=== PATIENT | female | born 1950 | race Caucasian/White ===

== ENCOUNTER 2017-02-25 10:45 | Emergency (ER) | payer MEDICARE, BC ==
[~2017-02-25] VITALS: Ht 170.2 cm; Wt 58.0 kg
[~2017-02-25 10:45] MED LIST: Z.0.NO CURRENT MEDS
[2017-02-25 10:48] VITALS: BP 130/67; PULSE 81; RESP 20; TEMP 97.6; O2SAT 97
[2017-02-25] MEDS ORDERED: MULT-65 PO (11:08)
[2017-02-25 11:18] VITALS: BP 142/79; PULSE 70; RESP 20; O2SAT 99
[2017-02-25] MEDS ORDERED: SODIUM CHLOR 0.9% 1000 ML INJ 1,000 ML IV SCH (11:23)
[2017-02-25] MEDS ORDERED: ONDANSETRON HCL 4 MG/2 ML VIAL IVP ONE (11:30)
--- NOTE | 2017-02-25 11:41 | PD ---
HPI Chief Complaint: Abdominal Pain Time Seen by Provider: 11:37 Travel History International Travel<30 days: No Contact w/Intl Traveler<30days: No Traveled to known affect area: No History of Present Illness HPI 66-year-old female that presents to the ED for evaluation of lower abdominal pain that she's had for months. Per patient she has a history of adhesions on her pelvic area. Per patient she had a hysterectomy and ever since she's had issues with that side. Per patient for the most but she's been dealing with the pain on her own. Per patient the past couple days has been more severe and she can barely walk because of the pain so she decided to come here today. She states that her pain is severe 10 out of 10. She denies any urinary issues. She states that her bowel movements are "more flat" than usual. She cannot really tell me how the pain feels like other than it's painful. Per patient pain does not radiate and stays mainly on the lower abdomen. Denies any chest pain. She does state having shortness of breath secondary to chronic smoking. She states that she has not seen anybody for this as she doesn't like "doctors work. Per patient she doesn't take any medications. She denies any other medical issues. She has allergies to Benadryl, codeine, iodine. She has not seen anybody for the lower abdominal pain. She denies any vaginal discharge or bleeding. PFSH Past Medical History Cancer: No Diabetes: No Diminished Hearing: No Glaucoma: No Hepatitis: No Hiatal Hernia: Yes Hypertension: No Medical other: Yes (esophageal stricture acid reflux) Pneumonia: Yes Thyroid Disease: No Influenza Vaccination: No Menopausal: Yes Past Surgical History Abdominal Surgery: Yes (ADHESIONS) Appendectomy: Yes Hysterectomy: Yes Oral Surgery: Yes (TOOTH EXTRACTION) Other Surgery: Yes Social History Alcohol Use: Yes (weekly) Tobacco Use: Yes (1/2 ppd) Substance Use: No Allergies-Medications (Allergen,Severity, Reaction): Coded Allergies: Benadryl (Verified Allergy, Severe, shortness of breath, 02/25/17) Codeine (Verified Allergy, Severe, sob, 02/25/17) Iodine (Verified Allergy, Severe, HIVES, 02/25/17) Reported Meds & Prescriptions Reported Meds & Active Scripts Active Reported Multi-Vitamin Daily (Multiple Vitamin) 1 Tab Tab 1 Tab PO DAILY Review of Systems Except as stated in HPI: all other systems reviewed are Neg Physical Exam Narrative GENERAL: SKIN: Warm and dry. HEAD: Atraumatic. Normocephalic. EYES: Pupils equal and round. No scleral icterus. No injection or drainage. ENT: No nasal bleeding or discharge. Mucous membranes pink and moist. Tongue is midline. No uvula deviation. NECK: Trachea midline. No JVD. CARDIOVASCULAR: Regular rate and rhythm. No murmurs, S3, S4. RESPIRATORY: No accessory muscle use. Clear to auscultation. Breath sounds equal bilaterally. GASTROINTESTINAL: Abdomen soft, tender to palpation in the lower abdomen, nondistended. Hepatic and splenic margins not palpable. MUSCULOSKELETAL: Extremities without clubbing, cyanosis, or edema. No obvious deformities. Full range of motion of the upper and lower extremities bilaterally. Pupils pulses bilaterally. NEUROLOGICAL: Awake and alert. No obvious cranial nerve deficits. Motor grossly within normal limits. Five out of 5 muscle strength in the arms and legs. Normal speech. PSYCHIATRIC: Appropriate mood and affect; insight and judgment normal. Data Data Last Documented VS Vital Signs Date Time Temp Pulse Resp B/P Pulse Ox O2 Delivery O2 Flow Rate FiO2 02/25/17 14:25 98.1 59 18 146/61 98 Room Air Orders Complete Blood Count With Diff (02/25/17 11:23) Comprehensive Metabolic Panel (02/25/17 11:23) Lipase (02/25/17 11:23) Lactic Acid (02/25/17 11:23) Prothrombin Time / Inr (Pt) (02/25/17 11:23) Act Partial Throm Time (Ptt) (02/25/17 11:23) Urinalysis - C+S If Indicated (02/25/17 11:23) Iv Access Insert/Monitor (02/25/17 11:23) Ondansetron Inj (Zofran Inj) (02/25/17 11:30) Sodium Chlor 0.9% 1000 Ml Inj (Ns 1000 M (02/25/17 11:23) Electrocardiogram (02/25/17 11:23) Ct Abd/Pel W/O Iv Contrast (02/25/17 ) Oral Contrast - Adult (02/25/17 11:33) Diatrizoate Liq ( Gastroview Liq) (02/25/17 12:33) Diatrizoate Liq (Md [place]) (02/25/17 13:21) Labs Laboratory Tests Test 02/25/17 02/25/17 02/25/17 11:25 11:30 11:41 Urine Color LIGHT-YELLOW Urine Turbidity CLEAR Urine pH 7.0 Urine Specific [place] 1.010 Urine Protein NEG mg/dL Urine Glucose (UA) NEG mg/dL Urine Ketones NEG mg/dL Urine Occult Blood SMALL Urine Nitrite NEG Urine Bilirubin NEG Urine Urobilinogen LESS THAN 2.0 MG/DL Urine Leukocyte Esterase NEG Urine RBC 7 /hpf Urine WBC LESS THAN 1 /hpf Urine Mucus FEW /lpf Microscopic Urinalysis Comment CULT NOT INDICATED White Blood Count 7.4 TH/MM3 Red Blood Count 4.52 MIL/MM3 Hemoglobin 15.0 GM/DL Hematocrit 42.6 % Mean Corpuscular Volume 94.2 FL Mean Corpuscular Hemoglobin 33.2 PG Mean Corpuscular Hemoglobin 35.2 % Concent Red Cell Distribution Width 12.9 % Platelet Count 248 TH/MM3 Mean Platelet Volume 8.0 FL Neutrophils (%) (Auto) 66.3 % Lymphocytes (%) (Auto) 26.8 % Monocytes (%) (Auto) 6.1 % Eosinophils (%) (Auto) 0.4 % Basophils (%) (Auto) 0.4 % Neutrophils # (Auto) 4.9 TH/MM3 Lymphocytes # (Auto) 2.0 TH/MM3 Monocytes # (Auto) 0.5 TH/MM3 Eosinophils # (Auto) 0.0 TH/MM3 Basophils # (Auto) 0.0 TH/MM3 CBC Comment DIFF FINAL Differential Comment Prothrombin Time 10.4 SEC Prothromb Time International 0.9 RATIO Ratio Activated Partial 28.0 SEC Thromboplast Time Sodium Level 140 MEQ/L Potassium Level 3.7 MEQ/L Chloride Level 104 MEQ/L Carbon Dioxide Level 27.0 MEQ/L Anion Gap 9 MEQ/L Blood Urea Nitrogen 8 MG/DL Creatinine 0.78 MG/DL Estimat Glomerular Filtration 74 ML/MIN Rate Random Glucose 98 MG/DL Calcium Level 9.4 MG/DL Total Bilirubin 0.5 MG/DL Aspartate Amino Transf 20 U/L (AST/SGOT) Alanine Aminotransferase 26 U/L (ALT/SGPT) Alkaline Phosphatase 82 U/L Total Protein 7.8 GM/DL Albumin 4.5 GM/DL Lipase 110 U/L Lactic Acid Level 1.1 mmol/L MDM Medical Decision Making Medical Screen Exam Complete: Yes Emergency Medical Condition: Yes Medical Record Reviewed: Yes Interpretation(s) CBC & BMP Diagram 02/25/17 11:30 LFTs WNL lipase WNL UA positive for blood. CT of abdomen and pelvis negative other than for possible cyst to the left kidney Differential Diagnosis Acute on chronic abdominal pain versus pelvic pain versus diverticulitis versus mass versus chronic pain versus UTI versus cystitis Narrative Course 66-year-old female that presents to the ED for evaluation of lower abdominal pain. Patient was properly examined and was found to have signs and symptoms of unclear etiology. This appears to be acute on chronic pain. I reviewed her medical records and she had similar symptoms in 2011 when she was seen by 3 different providers during that time. The providers at the time found her to be somewhat of a poor historian as well. Patient was offered pain medications but she declined. I offered labs and imaging and she agreed with this. Labs and imaging showed no sign of acute disease. CT was negative. The only thing that came up was some possible blood in the urine which she had last time. At this time I recommend close follow with outpatient PCP or urologist. Patient was given prescription for tramadol and diclofenac sodium to use for pain. Warm compresses. Follow urologist. See ED worsening symptoms. Diagnosis Primary Impression: Abdominal pain Qualified Code: R10.30 - Lower abdominal pain Additional Impression: Hematuria Referrals: Arnol Arellano DO Patient Instructions: General Instructions Additional Instructions: Take medications as prescribed. Follow-up with PCP and urologist for further evaluation (your urine did showed some blood and this requires evaluation by urologist Outpatient to better asses why you are having this pain). See ED for any worsening symptoms. Do not drink or drive while taking pain medication. Apply ice or heat as needed for pain Med/Other Pt SpecificInfo: Prescription(s) given Scripts Diclofenac Sodium DR 75 Mg Tabdr75 Mg PO BID PRN (PAIN SCALE 1 TO 10) #20 TAB Ref 0 Prov:Demond Weiner MD 02/25/17 Tramadol 50 Mg Tab50 Mg PO Q6H PRN (PAIN) #15 TAB Ref 0 Prov:Demond Weiner MD 02/25/17 Disposition: 01 DISCHARGE HOME Condition: Stable Dc Louis February 25, 2017 11:41
[2017-02-25 11:56] LABS: AUTOMATED NEUTROPHIL # 4.9 TH/MM3 (1.8-7.7); BASOPHIL % 0.4 % (0.0-2.0); EOSINOPHIL % 0.4 % (0.0-4.0); HEMATOCRIT 42.6 % (35.0-46.0); HEMO FLAGS DIFF FINAL; LYMPH % 26.8 % (9.0-44.0); MEAN CELL VOLUME 94.2 FL (80.0-100.0); MEAN CORPUSCULAR HEMOGLOBIN 33.2 PG (27.0-34.0); MEAN CORPUSCULAR HGB CONC 35.2 % (32.0-36.0); MONO % 6.1 % (0.0-8.0); NEUT % 66.3 % (16.0-70.0); PLATELET COUNT 248 TH/MM3 (150-450); RED BLOOD COUNT 4.52 MIL/MM3 (4.00-5.30); RED CELL DISTRIBUTION WIDTH 12.9 % (11.6-17.2); WHITE BLOOD COUNT 7.4 TH/MM3 (4.0-11.0)
[2017-02-25 12:01] LABS: INTERNATIONAL NORMALIZED RATIO 0.9 RATIO; PROTHROMBIN TIME - PATIENT 10.4 SEC (9.8-11.6)
[2017-02-25 12:01] LABS: BLOOD, URINE SMALL (NEG); COMMENT (UR) CULT NOT INDICATED; CULTURE IF INDICATED CULT NOT INDICATED; GLUCOSE,URINE NEG (NEG); KETONE, URINE NEG (NEG); MUCUS URINE FEW /lpf (OCC); NITRITE,URINE NEG (NEG); URINE COLOR LIGHT-YELLOW (YELLW/STRAW)
[2017-02-25 12:21] LABS: ANION GAP 9 MEQ/L (5-15); AST (GOT) 20 U/L (15-37); BLOOD UREA NITROGEN 8 MG/DL (7-18); CHLORIDE 104 MEQ/L (98-107); GLOMERULAR FILTRATION RATE 74 ML/MIN (>89); POTASSIUM 3.7 MEQ/L (3.5-5.1); SODIUM (NA) 140 MEQ/L (136-145)
[2017-02-25 12:25] LABS: ALKALINE PHOSPHATASE 82 U/L (45-117); ALT (GPT) 26 U/L (10-53); TOTAL BILIRUBIN ADULT 0.5 MG/DL (0.2-1.0)
[2017-02-25] MEDS ORDERED: DIATRIZOATE MEGLUM/DIATRIZOATE SOD 9 ML CUP ONE ×2 (12:33→13:21)
[2017-02-25] MEDS ORDERED: IOHEXOL 350 MG/ML 10 ML VIAL (for RAD DIAG) IV ONE (14:22)
[2017-02-25 14:25] VITALS: BP 146/61; PULSE 59; RESP 18; TEMP 98.1; O2SAT 98
--- NOTE | 2017-02-25 14:49 | RADRPT ---
EXAM DATE/TIME: 02/25/2017 14:15 [facility] COMPARISON: No previous studies available for comparison. INDICATIONS : Lower abdominal pain, dizziness and weakness for the last few days. ORAL CONTRAST: Prescribed oral contrast ingested. RADIATION DOSE: 9.96 CTDIvol (mGy) MEDICAL HISTORY : C-difficle. SURGICAL HISTORY : Appendectomy. Hysterectomy. ENCOUNTER: Initial ACUITY: 3 days PAIN SCALE: 3/10 LOCATION: Bilateral lower quadrant TECHNIQUE: Volumetric scanning of the abdomen and pelvis was performed. Using automated exposure control and ad justment of the mA and/or kV according to patient size, radiation dose was kept as low as reasonably achievable to obtain optimal diagnostic quality images. FINDINGS: LOWER LUNGS: The visualized lower lungs are clear. LIVER: Homogeneous density without lesion. There is no dilation of the biliary tree. No calcified gallston es. SPLEEN: Normal size without lesion. PANCREAS: Within normal limits. KIDNEYS: There is a small hypodensity in the anterior midpole region of the right kidney which is likely a cys t. There is no evidence of stone or hydronephrosis. ADRENAL GLANDS: Within normal limits. VASCULAR: There is no aortic aneurysm. BOWEL/MESENTERY: Distal colonic diverticula. No abnormal dilatation, wall thickening or focal inflammatory changes myron ntified. ABDOMINAL WALL: Within normal limits. RETROPERITONEUM: There is no lymphadenopathy. BLADDER: No wall thickening or mass. REPRODUCTIVE: Uterus surgically absent. No evidence of pelvic mass or free fluid. INGUINAL: There is no lymphadenopathy or hernia. MUSCULOSKELETAL: Within normal limits for patient age. CONCLUSION: No acute CT findings the abdomen or pelvis. Troy Morocho MD on February 25, 2017 at 14:43 Board Certified Radiologist. This report was verified electronically.
[2017-02-25] MEDS ORDERED: DICL75TA PO (14:53)
[2017-02-25] MEDS ORDERED: TRAM50TA PO (14:53)
[2017-02-25 15:28] VITALS: BP 136/74; TEMP 98.6
--- NOTE | 2017-02-26 18:26 | EKG ---
Date Performed: 02/25/2017 Time Performed: 14:37:26 PTAGE: 66 years EKG: SINUS BRADYCARDIA BORDERLINE ECG Compared to prior tracing no significant change PREVIOUS TRACING on 07/24/2008 DOCTOR: Tristin Reid Interpretating Date/Time 02/26/2017 18:24:21
== END 2017-02-25 15:33 | disposition home or self-care (01) ==
LOC: NEPE 10:45
DX: R10.30 Lower abdominal pain, unspecified (principal); R31.9 Hematuria, unspecified; R06.02 Shortness of breath; F17.210 Nicotine dependence, cigarettes, uncomplicated
CPT/HCPCS: 74176; 80053; 81001; 83605; 83690; 85025; 85610; 85730; 93005; 96360; 99284; J7030; Q9963; Q9967

== ENCOUNTER 2017-04-16 11:25 | Emergency (ER) | payer MEDICARE, BC ==
[~2017-04-16] VITALS: Ht 170.2 cm; Wt 54.5 kg
[~2017-04-16 11:25] MED LIST changes: +DICL75TA PO; +MULT-65 PO; +TRAM50TA PO; -Z.0.NO CURRENT MEDS
[2017-04-16 11:27] VITALS: BP 146/69; PULSE 90; RESP 22; TEMP 98.5; O2SAT 97
[2017-04-16] MEDS ORDERED: SODIUM CHLOR 0.9% 1000 ML INJ 1,000 ML IV SCH (11:52)
--- NOTE | 2017-04-16 11:59 | PD ---
HPI Chief Complaint: Abdominal Pain Time Seen by Provider: 11:47 Travel History International Travel<30 days: No Contact w/Intl Traveler<30days: No Traveled to known affect area: No History of Present Illness HPI PATIENT HAS CHRONIC ABD PAIN, SHE IS HERE FOR SAME...NO N/V/D BUT CONTINUES TO C /O ABDOMINAL PAIN PFSH Past Medical History Cancer: No Diabetes: No Diminished Hearing: No Glaucoma: No Hepatitis: No Hiatal Hernia: Yes Hypertension: No Medical other: Yes (esophageal stricture acid reflux) Pneumonia: Yes Thyroid Disease: No Tetanus Vaccination: Unknown Influenza Vaccination: No Menopausal: Yes Past Surgical History Abdominal Surgery: Yes (ADHESIONS) Appendectomy: Yes Hysterectomy: Yes Oral Surgery: Yes (TOOTH EXTRACTION) Other Surgery: Yes Social History Alcohol Use: Yes (weekly) Tobacco Use: Yes (1/2 ppd) Substance Use: No Allergies-Medications (Allergen,Severity, Reaction): Coded Allergies: Codeine (Verified Allergy, Severe, sob, 04/16/17) Iodine (Verified Allergy, Severe, HIVES, 04/16/17) Reported Meds & Prescriptions Reported Meds & Active Scripts Active Reported Multi-Vitamin Daily (Multiple Vitamin) 1 Tab Tab 1 Tab PO DAILY Review of Systems Except as stated in HPI: all other systems reviewed are Neg Gastrointestinal: Positive: Abdominal Pain Physical Exam Narrative GENERAL: SKIN: Warm and dry. HEAD: Atraumatic. Normocephalic. EYES: Pupils equal and round. No scleral icterus. No injection or drainage. ENT: No nasal bleeding or discharge. Mucous membranes pink and moist. NECK: Trachea midline. No JVD. CARDIOVASCULAR: Regular rate and rhythm. RESPIRATORY: No accessory muscle use. Clear to auscultation. Breath sounds equal bilaterally. GASTROINTESTINAL: Abdomen soft, NONDISTENDED, WHILE PATIENT IS DISTRACTED NO REBOUND/GUARDING/RIGIDITY BUT SOON PATIENT IS AWARE, I CANNOT EVEN GRAZE HER SKIN WITHOUT HER SCREAMING AND YELLING AT THE TOP OF HER LUNGS C/O ABD PAIN... MUSCULOSKELETAL: Extremities without clubbing, cyanosis, or edema. No obvious deformities. NEUROLOGICAL: Awake and alert. No obvious cranial nerve deficits. Motor grossly within normal limits. Five out of 5 muscle strength in the arms and legs. Normal speech. PSYCHIATRIC: Appropriate mood and affect; insight and judgment normal. Data Data Last Documented VS Vital Signs Date Time Temp Pulse Resp B/P Pulse Ox O2 Delivery O2 Flow Rate FiO2 04/16/17 11:44 22 04/16/17 11:27 98.5 90 146/69 97 Room Air Orders Complete Blood Count With Diff (04/16/17 11:52) Comprehensive Metabolic Panel (04/16/17 11:52) Lipase (04/16/17 11:52) Ct Abd/Pel W/O Iv Contrast (04/16/17 11:52) Iv Access Insert/Monitor (04/16/17 11:52) NPO (04/16/17 11:52) Ondansetron Inj (Zofran Inj) (04/16/17 12:00) Sodium Chlor 0.9% 1000 Ml Inj (Ns 1000 M (04/16/17 11:52) Sodium Chloride 0.9% Flush (Ns Flush) (04/16/17 12:00) Dicyclomine Inj (Bentyl Inj) (04/16/17 12:00) Labs Laboratory Tests Test 04/16/17 11:55 White Blood Count 10.4 TH/MM3 Red Blood Count 4.66 MIL/MM3 Hemoglobin 15.0 GM/DL Hematocrit 44.2 % Mean Corpuscular Volume 94.9 FL Mean Corpuscular Hemoglobin 32.1 PG Mean Corpuscular Hemoglobin 33.8 % Concent Red Cell Distribution Width 12.9 % Platelet Count 232 TH/MM3 Mean Platelet Volume 8.5 FL Neutrophils (%) (Auto) 72.0 % Lymphocytes (%) (Auto) 22.6 % Monocytes (%) (Auto) 4.9 % Eosinophils (%) (Auto) 0.3 % Basophils (%) (Auto) 0.2 % Neutrophils # (Auto) 7.5 TH/MM3 Lymphocytes # (Auto) 2.4 TH/MM3 Monocytes # (Auto) 0.5 TH/MM3 Eosinophils # (Auto) 0.0 TH/MM3 Basophils # (Auto) 0.0 TH/MM3 CBC Comment DIFF FINAL Differential Comment MDM Medical Decision Making Medical Screen Exam Complete: Yes Emergency Medical Condition: Yes Medical Record Reviewed: Yes Differential Diagnosis SBO V PANCREATITIS V ELECTROLYTE ABNL Narrative Course PATIENT FROM THE GET GO WAS YELLING AND SCREAMING AT STAFF THAT SHE NEEDS XANAX , AND THAT SHE IS IN PAIN (ABDOMINAL), YET WHEN ADVISED THAT I WOULD BE ORDERING CT ABD AND LABS, SHE DECLINED UNLESS SHE WAS GIVEN PAIN MEDICATION....BENTYL, ZOFRAN AND IVF WERE OFFERED, SHE REFUSED THOSE WELL HER CT....PT GIVEN RISK OF AMA AND INTERFERING IN HER MEDICAL EVALUATION WHERE NO DIAGNOSTICS ARE DONE BUT ONLY PAIN MEDICATION IS GIVEN. Diagnosis Primary Impression: AMA Additional Impression: CHRONIC ABDOMINAL PAIN Patient Instructions: Chronic Abdominal Pain (ED), General Instructions Additional Instructions: SEE GI DOCTOR JOSEF AND KEEP YOUR APPOINTMENT WITH DR AVALOS Disposition: 07 AGAINST MEDICAL ADVICE Condition: Stable Delon Mcneill MD Apr 16, 2017 11:59
[2017-04-16] MEDS ORDERED: ONDANSETRON HCL 4 MG/2 ML VIAL IVP ONE (12:00)
[2017-04-16] MEDS ORDERED: SODIUM CHLORIDE 0.9% FLUSH 10 ML FLUSH IV FLUSH PRN (12:00)
[2017-04-16] MEDS ORDERED: DICYCLOMINE HCL 20 MG/2 ML VIAL IM ONE (12:00)
[2017-04-16 12:17] LABS: AUTOMATED NEUTROPHIL # 7.5 TH/MM3 (1.8-7.7); BASOPHIL % 0.2 % (0.0-2.0); EOSINOPHIL % 0.3 % (0.0-4.0); HEMATOCRIT 44.2 % (35.0-46.0); HEMO FLAGS DIFF FINAL; LYMPH % 22.6 % (9.0-44.0); LYMPHOCYTE # 2.4 TH/MM3 (1.0-4.8); MEAN CELL VOLUME 94.9 FL (80.0-100.0); MEAN CORPUSCULAR HEMOGLOBIN 32.1 PG (27.0-34.0); MEAN CORPUSCULAR HGB CONC 33.8 % (32.0-36.0); MONO % 4.9 % (0.0-8.0); PLATELET COUNT 232 TH/MM3 (150-450); RED BLOOD COUNT 4.66 MIL/MM3 (4.00-5.30); RED CELL DISTRIBUTION WIDTH 12.9 % (11.6-17.2); WHITE BLOOD COUNT 10.4 TH/MM3 (4.0-11.0)
[2017-04-16 12:37] LABS: ALT (GPT) 26 U/L (10-53); ANION GAP 8 MEQ/L (5-15); AST (GOT) 13 U/L (15-37); BICARBONATE 25.9 MEQ/L (21.0-32.0); BLOOD UREA NITROGEN 10 MG/DL (7-18); CHLORIDE 106 MEQ/L (98-107); GLOMERULAR FILTRATION RATE 78 ML/MIN (>89); POTASSIUM 3.8 MEQ/L (3.5-5.1); SODIUM (NA) 140 MEQ/L (136-145)
[2017-04-16 12:39] LABS: ALKALINE PHOSPHATASE 75 U/L (45-117); TOTAL BILIRUBIN ADULT 0.5 MG/DL (0.2-1.0)
== END 2017-04-16 13:30 | disposition left against medical advice (07) ==
LOC: NEPC 11:25
DX: R10.9 Unspecified abdominal pain (principal); F17.210 Nicotine dependence, cigarettes, uncomplicated; G89.29 Other chronic pain; Z53.21 Procedure and treatment not carried out due to patient leaving prior to being seen by health care provider
CPT/HCPCS: 80053; 83690; 85025; 96360; 99284; J7030

== ENCOUNTER 2017-04-25 11:57 | Emergency (ER) | payer MEDICARE, BC ==
[~2017-04-25] VITALS: Ht 170.2 cm; Wt 58.0 kg
[~2017-04-25 11:57] MED LIST changes: -DICL75TA PO; -TRAM50TA PO
[2017-04-25 11:59] VITALS: BP 154/85; PULSE 92; RESP 28; TEMP 98.5; O2SAT 94
[2017-04-25] MEDS ORDERED: SODIUM CHLORIDE 0.9% FLUSH 10 ML FLUSH IV FLUSH PRN (13:30)
--- NOTE | 2017-04-25 13:31 | PD ---
HPI Chief Complaint: Abdominal Pain Time Seen by Provider: 12:46 Travel History International Travel<30 days: No Contact w/Intl Traveler<30days: No Traveled to known affect area: No History of Present Illness HPI This is a 67-year-old female who presents to the emergency department with a history of chronic abdominal pain who reports right sided lower abdominal pain that's been present for the past 2 months but much worse over the past 2 days to the point where she says she can't function. She says she came in to the grocery store because she has some much pain. She says the pain is worse in the morning and it causes her to double over and she has trouble getting around the house. She says she feels nauseous but denies any vomiting and denies any diarrhea or constipation. She denies any fevers or chills. She's had a hysterectomy and an appendectomy in the past and she had a surgery for lysis of adhesions. She thinks that the adhesions or what is causing her pain. She doesn't have a primary care doctor and doesn't have a core extruder. She says she's called all over town but nobody is taking new patients. PFSH Past Medical History Cancer: No Diabetes: No Diminished Hearing: No Glaucoma: No Hepatitis: No Hiatal Hernia: Yes Hypertension: No Medical other: Yes (esophageal stricture acid reflux) Pneumonia: Yes Thyroid Disease: No Menopausal: Yes Past Surgical History Abdominal Surgery: Yes (ADHESIONS) Appendectomy: Yes Hysterectomy: Yes Oral Surgery: Yes (TOOTH EXTRACTION) Other Surgery: Yes Social History Alcohol Use: Yes (weekly) Tobacco Use: Yes (1/2 ppd) Substance Use: No Allergies-Medications (Allergen,Severity, Reaction): Coded Allergies: Codeine (Verified Allergy, Severe, sob, 04/25/17) Iodine (Verified Allergy, Severe, HIVES, 04/25/17) Reported Meds & Prescriptions Reported Meds & Active Scripts Active Reported Multi-Vitamin Daily (Multiple Vitamin) 1 Tab Tab 1 Tab PO DAILY Review of Systems Except as stated in HPI: all other systems reviewed are Neg Physical Exam Narrative GENERAL:Well appearing, no acute distress SKIN: Focused skin assessment warm and dry. HEAD: Atraumatic. Normocephalic. EYES: Pupils equal and round. No injection or drainage. ENT: Moist mucous membranes NECK: Trachea midline. CARDIOVASCULAR: Regular rate and rhythm. No murmur appreciated. RESPIRATORY: Clear to auscultation. Breath sounds equal bilaterally. GASTROINTESTINAL: Abdomen soft, tender to palpation in the right lower quadrant with some guarding MUSCULOSKELETAL: No obvious deformities. NEUROLOGICAL: Awake and alert. No obvious cranial nerve deficits. Moving all extremities. PSYCHIATRIC : very anxious, somewhat tangential Data Data Last Documented VS Vital Signs Date Time Temp Pulse Resp B/P Pulse Ox O2 Delivery O2 Flow Rate FiO2 04/25/17 14:12 16 97 Room Air 04/25/17 11:59 98.5 92 154/85 Orders Complete Blood Count With Diff (04/25/17 13:17) Comprehensive Metabolic Panel (04/25/17 13:17) Lipase (04/25/17 13:17) Lactic Acid (04/25/17 13:17) Urinalysis - C+S If Indicated (04/25/17 13:17) Iv Access Insert/Monitor (04/25/17 13:17) Ecg Monitoring (04/25/17 13:17) Oximetry (04/25/17 13:17) Sodium Chloride 0.9% Flush (Ns Flush) (04/25/17 13:30) Ct Abd/Pel W/O Iv Contrast (04/25/17 ) Labs Laboratory Tests Test 04/25/17 04/25/17 04/25/17 13:38 14:10 14:27 White Blood Count 8.0 TH/MM3 Red Blood Count 4.64 MIL/MM3 Hemoglobin 15.2 GM/DL Hematocrit 44.0 % Mean Corpuscular Volume 94.8 FL Mean Corpuscular Hemoglobin 32.7 PG Mean Corpuscular Hemoglobin 34.5 % Concent Red Cell Distribution Width 12.7 % Platelet Count 235 TH/MM3 Mean Platelet Volume 8.5 FL Neutrophils (%) (Auto) 70.1 % Lymphocytes (%) (Auto) 23.8 % Monocytes (%) (Auto) 5.7 % Eosinophils (%) (Auto) 0.2 % Basophils (%) (Auto) 0.2 % Neutrophils # (Auto) 5.6 TH/MM3 Lymphocytes # (Auto) 1.9 TH/MM3 Monocytes # (Auto) 0.5 TH/MM3 Eosinophils # (Auto) 0.0 TH/MM3 Basophils # (Auto) 0.0 TH/MM3 CBC Comment DIFF FINAL Differential Comment Sodium Level 138 MEQ/L Potassium Level 4.4 MEQ/L Chloride Level 106 MEQ/L Carbon Dioxide Level 26.1 MEQ/L Anion Gap 6 MEQ/L Blood Urea Nitrogen 8 MG/DL Creatinine 0.82 MG/DL Estimat Glomerular Filtration 69 ML/MIN Rate Random Glucose 100 MG/DL Calcium Level 9.9 MG/DL Total Bilirubin 0.7 MG/DL Aspartate Amino Transf 21 U/L (AST/SGOT) Alanine Aminotransferase 22 U/L (ALT/SGPT) Alkaline Phosphatase 71 U/L Total Protein 7.5 GM/DL Albumin 4.4 GM/DL Lipase 118 U/L Lactic Acid Level 1.4 mmol/L Urine Color LIGHT-YELLOW Urine Turbidity CLEAR Urine pH 7.5 Urine Specific [place] 1.005 Urine Protein NEG mg/dL Urine Glucose (UA) NEG mg/dL Urine Ketones NEG mg/dL Urine Occult Blood SMALL Urine Nitrite NEG Urine Bilirubin NEG Urine Urobilinogen LESS THAN 2.0 MG/DL Urine Leukocyte Esterase NEG Urine RBC 4 /hpf Urine WBC LESS THAN 1 /hpf Microscopic Urinalysis Comment CULT NOT INDICATED MDM Medical Decision Making Medical Screen Exam Complete: Yes Emergency Medical Condition: Yes Interpretation(s) Afebrile, mild tachycardia, tachypnea, hypertension No leukocytosis Electrolytes are reassuring Lactic acid is normal Lipase is normal Urinalysis is negative for infection Last 24 hours Impressions Abdomen/Pelvis CT 04/25/17 0000 Signed Impressions: Service Date/Time: Thursday, April 25, 2017 13:38 - CONCLUSION: 1. No acute findings within the abdomen or pelvis. Postoperative hysterectomy and appendectomy. No significant change from February 25. Baldomero Hendricks MD Differential Diagnosis Colitis, abscess, ovarian cyst, ovarian torsion Narrative Course This is a 67-year-old female who presents to the emergency department with right lower abdominal discomfort. She is guarding on exam. She also is very hysterical and seems to have a large component of anxiety to her presentation and perhaps some somatization disorder as she handed me a list of the symptoms that she was having just yesterday and they were written down on a piece of paper. Labs are obtained which were reassuring. His CT was obtained which was unremarkable. I strongly advised to the patient that she follow-up with a primary care physician and core extruder for further evaluation. Patient discharged home. Diagnosis Primary Impression: Abdominal pain Qualified Code: R10.9 - Abdominal pain, unspecified location Referrals: [facility] Patient Instructions: General Instructions Additional Instructions: If you develop severe or worsening abdominal pain, fever>100.4, persistent vomiting or inability to eat or drink return to the emergency department immediately. Follow up with your primary care physician in 1-2 days for a check-up. Med/Other Pt SpecificInfo: Prescription(s) given Scripts Dicyclomine (Bentyl)10 Mg Cap10 Mg PO TID PRN (Bowel Management) #15 CAP Ref 0 Prov:Graciela Carver MD 04/25/17 Disposition: 01 DISCHARGE HOME Condition: Stable Graciela Carver MD Apr 25, 2017 13:31
[2017-04-25 13:54] LABS: AUTOMATED NEUTROPHIL # 5.6 TH/MM3 (1.8-7.7); BASOPHIL % 0.2 % (0.0-2.0); EOSINOPHIL % 0.2 % (0.0-4.0); HEMO FLAGS DIFF FINAL; LYMPH % 23.8 % (9.0-44.0); LYMPHOCYTE # 1.9 TH/MM3 (1.0-4.8); MEAN CELL VOLUME 94.8 FL (80.0-100.0); MEAN CORPUSCULAR HEMOGLOBIN 32.7 PG (27.0-34.0); MEAN CORPUSCULAR HGB CONC 34.5 % (32.0-36.0); MONO % 5.7 % (0.0-8.0); NEUT % 70.1 % (16.0-70.0); PLATELET COUNT 235 TH/MM3 (150-450); RED BLOOD COUNT 4.64 MIL/MM3 (4.00-5.30); RED CELL DISTRIBUTION WIDTH 12.7 % (11.6-17.2)
[2017-04-25 14:00] VITALS: BP 133/72; PULSE 68; RESP 16; O2SAT 98
--- NOTE | 2017-04-25 14:05 | RADRPT ---
EXAM DATE/TIME: 04/25/2017 13:38 [facility] COMPARISON: CT ABDOMEN & PELVIS W/O CONTRAST, February 25, 2017, 14:15. INDICATIONS : Right lower abdomen pain for one month. ORAL CONTRAST: No oral contrast ingested. RADIATION DOSE: 4.59 CTDIvol (mGy) MEDICAL HISTORY : None SURGICAL HISTORY : Appendectomy. Hysterectomy. ENCOUNTER: Initial ACUITY: 1 month PAIN SCALE: 7/10 LOCATION: Right lower quadrant TECHNIQUE: Volumetric scanning of the abdomen and pelvis was performed. Using automated exposure control and ad justment of the mA and/or kV according to patient size, radiation dose was kept as low as reasonably achievable to obtain optimal diagnostic quality images. DICOM format image data is available electro nically for review and comparison. FINDINGS: Lung bases are clear. No acute findings in the liver, spleen, adrenals, kidneys or pancreas. No calci fied gallstones or biliary ductal dilatation. Postoperative hysterectomy and appendectomy. No pelvic masses or free fluid. No acute bony abnormalit ies. CONCLUSION: 1. No acute findings within the abdomen or pelvis. Postoperative hysterectomy and appendectomy. No si gnificant change from February 25. Baldomero Hendricks MD on April 25, 2017 at 13:59 Board Certified Radiologist. This report was verified electronically.
[2017-04-25 14:07] LABS: ALT (GPT) 22 U/L (10-53)
[2017-04-25 14:10] LABS: ALKALINE PHOSPHATASE 71 U/L (45-117); TOTAL BILIRUBIN ADULT 0.7 MG/DL (0.2-1.0)
[2017-04-25 14:12] VITALS: RESP 16; O2SAT 97
[2017-04-25 14:16] LABS: ANION GAP 6 MEQ/L (5-15); AST (GOT) 21 U/L (15-37); BICARBONATE 26.1 MEQ/L (21.0-32.0); BLOOD UREA NITROGEN 8 MG/DL (7-18); CHLORIDE 106 MEQ/L (98-107); GLOMERULAR FILTRATION RATE 69 ML/MIN (>89); SODIUM (NA) 138 MEQ/L (136-145)
[2017-04-25 14:20] LABS: POTASSIUM 4.4 MEQ/L (3.5-5.1)
[2017-04-25 15:01] LABS: BLOOD, URINE SMALL (NEG); GLUCOSE,URINE NEG (NEG); KETONE, URINE NEG (NEG); NITRITE,URINE NEG (NEG); PH, URINE 7.5 (5.0-8.5); URINE COLOR LIGHT-YELLOW (YELLW/STRAW)
[2017-04-25 15:02] LABS: COMMENT (UR) CULT NOT INDICATED; CULTURE IF INDICATED CULT NOT INDICATED
[2017-04-25] MEDS ORDERED: DICY10 PO (15:08)
== END 2017-04-25 15:58 | disposition home or self-care (01) ==
LOC: NEPE 11:57
DX: R10.9 Unspecified abdominal pain (principal); R10.31 Right lower quadrant pain; R11.0 Nausea; F17.200 Nicotine dependence, unspecified, uncomplicated; Z87.19 Personal history of other diseases of the digestive system; Z87.01 Personal history of pneumonia (recurrent)
CPT/HCPCS: 74176; 80053; 81001; 83605; 83690; 85025

== ENCOUNTER 2018-11-02 08:51 | Observation (INO) ==
--- NOTE | 2018-11-02 10:37 | ED ---
HPI General Chief complaint: Abdominal Pain Stated complaint: Dizziness Time Seen by Provider: 11/02/18 10:06 History of Present Illness HPI narrative: The patient was seen and examined in the presence of the nurse. At no point in time was in the room without the nurse present. This patient has a lot of complaints. Her chief complaint seems to be lightheadedness. This been going on for 2 days. It is worse when she leans forward her tilts her head back or changes position. She drove herself here. However she says she cannot walk at all. She walked to the bathroom but then called for help and said she could not walk back. She exhibits some bizarre behavior. She seems very anxious and panicky. She has chronic abdominal pain. I asked if she had anxiety or panic problems and she got very instantly irate and started yelling at me that "I am not crazy". This makes it very challenging to evaluate her. She is not cooperative. She is very argumentative and hypercritical. No alleviating factors. She denies specific motor group weakness or sensory loss or speech slurring. She has had headaches in the last few days but is not really having one now. She denies vertigo type sensation but describes it as a lightheaded feeling. Severity is moderate Related Data Home Medications Medication Instructions Recorded Confirmed No Known Home Medications 11/02/18 11/02/18 Allergies Allergy/AdvReac Type Severity Reaction Status Date / Time codeine Allergy Severe sob Verified 11/02/18 09:57 iodine Allergy Severe HIVES Verified 11/02/18 09:57 potassium iodide Allergy Severe HIVES Verified 11/02/18 09:57 povidone-iodine Allergy Severe HIVES Verified 11/02/18 09:57 sodium iodide Allergy Severe HIVES Verified 11/02/18 09:57 sodium iodide Allergy Severe HIVES Verified 11/02/18 09:57 Review of Systems ROS: all other systems reviewed are negative [facility] Medical History Medical History History of hysterectomy (Acute) Smoker (Acute) Social History Social History Substance History: No History of Abuse Second Hand Smoke Exposure: Yes Smoking Status: Current every day smoker Tobacco Type: Cigarettes How Often Do You Have a Drink Containing Alcohol: Never Recent Travel in [facility] within the Last 8 Weeks: No Recent Out of Country Travel within the Last 8 Weeks: No Immunization History Tetanus Immunization: >5 Years Exam Narrative Exam Narrative: GENERAL: Well-nourished, well-developed patient in no apparent distress. SKIN: Focused skin assessment reveals no rash and nodules. Skin is Warm and dry. HEAD: Atraumatic. Normocephalic. EYES: Pupils equal and round. No scleral icterus. No injection or drainage. ENT: No nasal bleeding or discharge. Mucous membranes pink and moist. NECK: Trachea midline. No JVD. CARDIOVASCULAR: Regular rate and rhythm. No murmur appreciated. RESPIRATORY: No accessory muscle use. Clear to auscultation. Breath sounds equal bilaterally. GASTROINTESTINAL: Abdomen soft, non-tender, nondistended. Hepatic and splenic margins not palpable. MUSCULOSKELETAL: No obvious deformities. No clubbing. No cyanosis. No edema. NEUROLOGICAL: Awake and alert. No obvious cranial nerve deficits. Motor grossly within normal limits. Normal speech. PSYCHIATRIC: Anxious and aggravated mood and affect; insight and judgment seems poor . Course Initial Documented Vital Signs Temperature 97.6 F 11/02/18 08:55 Pulse Rate 82 11/02/18 08:55 Respiratory Rate 20 11/02/18 08:55 Blood Pressure 165/76 H 11/02/18 08:55 Pulse Oximetry 99 11/02/18 08:55 Last Documented Vital Signs Temperature 97.8 F 11/02/18 09:58 Pulse Rate 65 11/02/18 10:26 Respiratory Rate 16 11/02/18 09:58 Blood Pressure 152/67 H 11/02/18 09:58 Pulse Oximetry 100 11/02/18 09:58 Medical Decision Making [facility] Narrative Medical decision making narrative: 68-year-old female complaint of lightheadedness and difficulty walking. I have ordered some testing to include labs and urine and brain CT. I do not detect an acute neurologic deficit but her gait is poor and I do not know if this is due to lack of effort or psychiatric problem or a true neurologic issue such as posterior circulation insufficiency or stroke. Seems to be an acute change that happened 2 days ago per patient. She is quite dramatic when she tries to walk. I am not able to get her to function in the department. Brain CT is negative. Labs reasonably normal. Going to see if we can do a 23-hour observation to the medical residents to evaluate for acute inability to ambulate, possible CVA or posterior circulation insufficiency and neurologic and physical therapy evaluations. I have placed a call to the residents to discuss. Physical therapy is evaluating her now. The residents will do an observation. I am not sure if anything objective will be found or not. Medical Screen Exam Complete: Yes Emergency Medical Condition: Yes Lab Data Lab results reviewed: Yes I reviewed the patient's lab results. Lab results narrative: Labs are normal Result diagrams: 11/02/18 10:30 11/02/18 10:30 Lab Results 11/02/18 11/02/18 11/02/18 Range/Units 10:15 10:15 10:30 WBC (4.0-11.0) th/mm3 RBC (4.00-5.30) mil/mm3 Hgb (11.6-15.3) gm/dL Hct (35.0-46.0) % MCV (80.0-100.0) fL MCH (27.0-34.0) pg MCHC (32.0-36.0) % RDW (11.6-17.2) % Plt Count (150-450) th/mm3 MPV (7.0-11.0) fL Neut % (Auto) (16.0-70.0) % Lymph % (Auto) (9.0-44.0) % Rabun % (Auto) (0.0-8.0) % Eos % (Auto) (0.0-4.0) % Baso % (Auto) (0.0-2.0) % Neut # (Auto) (1.8-7.7) th/mm3 Lymph # (Auto) (1.0-4.8) th/mm3 Rabun # (Auto) (0.0-0.9) th/mm3 Eos # (Auto) (0.0-0.4) th/mm3 Baso # (Auto) (0.0-0.2) th/mm3 WBC Differential Differential Comment Sodium (136-145) meq/L Potassium (3.5-5.1) meq/L Chloride (98-107) meq/L Carbon Dioxide (21.0-32.0) meq/L Anion Gap (5-15) meq/L BUN (7-18) mg/dL Creatinine (0.50-1.00) mg/dL Estimated GFR (>89) mL/min Random Glucose (74-106) mg/dL Calcium (8.5-10.1) mg/dL Total Bilirubin (0.2-1.0) mg/dL AST (15-37) U/L ALT (10-53) U/L Alkaline Phosphatase (45-117) U/L Total Protein (6.4-8.2) g/dL Albumin (3.4-5.0) g/dL TSH 1.960 (0.358-3.740) uIU/mL Urine Color Yellow (Yellw/Straw) Urine Clarity Clear (Clear) Urine pH 6.0 (5.0-8.5) Ur Specific Mcdade 1.008 (1.002-1.035) Urine Protein Negative (Neg-Trace) mg/dL Urine Glucose (UA) Negative (Negative) mg/dL Urine Ketones Trace H (Negative) mg/dL Urine Occult Blood Small H (Negative) Urine Nitrate Negative (Negative) Urine Bilirubin Negative (Negative) Urine Urobilinogen Less than 2 (Less than 2) mg/dL Ur Leukocyte Esterase Negative (Negative) Urine RBC 4 H (0-3) /hpf Micro UA Comment Culture not ind Ur Microscopic Review Not Reportable Urine Culture Comments Culture not ind Urine Opiates Screen Neg (Neg) Ur Barbiturates Screen Neg (Neg) Ur Amphetamines Screen Neg (Neg) U Benzodiazepines Scrn Neg (Neg) Urine Cocaine Screen Neg (Neg) U Cannabinoids Screen Neg (Neg) Serum Alcohol Less than 3 (0-5) mg/dL 11/02/18 11/02/18 Range/Units 10:30 10:30 WBC 6.7 (4.0-11.0) th/mm3 RBC 4.23 (4.00-5.30) mil/mm3 Hgb 14.4 (11.6-15.3) gm/dL Hct 40.6 (35.0-46.0) % MCV 95.9 (80.0-100.0) fL MCH 34.1 H (27.0-34.0) pg MCHC 35.5 (32.0-36.0) % RDW 13.1 (11.6-17.2) % Plt Count 224 (150-450) th/mm3 MPV 8.0 (7.0-11.0) fL Neut % (Auto) 72.7 H (16.0-70.0) % Lymph % (Auto) 21.2 (9.0-44.0) % Rabun % (Auto) 5.4 (0.0-8.0) % Eos % (Auto) 0.3 (0.0-4.0) % Baso % (Auto) 0.4 (0.0-2.0) % Neut # (Auto) 4.9 (1.8-7.7) th/mm3 Lymph # (Auto) 1.4 (1.0-4.8) th/mm3 Rabun # (Auto) 0.4 (0.0-0.9) th/mm3 Eos # (Auto) 0.0 (0.0-0.4) th/mm3 Baso # (Auto) 0.0 (0.0-0.2) th/mm3 WBC Differential . Differential Comment Auto diff final Sodium 139 (136-145) meq/L Potassium 3.8 (3.5-5.1) meq/L Chloride 109 H (98-107) meq/L Carbon Dioxide 22.6 (21.0-32.0) meq/L Anion Gap 7 (5-15) meq/L BUN 8 (7-18) mg/dL Creatinine 0.53 (0.50-1.00) mg/dL Estimated GFR Greater than 89 (>89) mL/min Random Glucose 113 H (74-106) mg/dL Calcium 9.2 (8.5-10.1) mg/dL Total Bilirubin 0.5 (0.2-1.0) mg/dL AST 16 (15-37) U/L ALT 22 (10-53) U/L Alkaline Phosphatase 75 (45-117) U/L Total Protein 7.5 (6.4-8.2) g/dL Albumin 4.4 (3.4-5.0) g/dL TSH (0.358-3.740) uIU/mL Urine Color (Yellw/Straw) Urine Clarity (Clear) Urine pH (5.0-8.5) Ur Specific Mcdade (1.002-1.035) Urine Protein (Neg-Trace) mg/dL Urine Glucose (UA) (Negative) mg/dL Urine Ketones (Negative) mg/dL Urine Occult Blood (Negative) Urine Nitrate (Negative) Urine Bilirubin (Negative) Urine Urobilinogen (Less than 2) mg/dL Ur Leukocyte Esterase (Negative) Urine RBC (0-3) /hpf Micro UA Comment Ur Microscopic Review Urine Culture Comments Urine Opiates Screen (Neg) Ur Barbiturates Screen (Neg) Ur Amphetamines Screen (Neg) U Benzodiazepines Scrn (Neg) Urine Cocaine Screen (Neg) U Cannabinoids Screen (Neg) Serum Alcohol (0-5) mg/dL Imaging Data Attestation: I personally reviewed and interpreted this imaging study as follows : My impression: Brain CT is normal Radiologist's impression: Head CT 11/02/18 10:26 CONCLUSION: 1. Negative CT Head non contrast. . Discharge Plan Discharge Disposition Patient Disposition: ED Admit(ED Internal Use Only) Discharge Details Diagnosis: Unable to ambulate, Light-headedness, Ataxia Physicians Team ED Provider: Evan Park Primary Care Provider: Primary Care Physici,Carola Rxs /Orders / Referrals /Forms Prescriptions: No Action No Known Home Medications RF: 0 Discharge Interventions Interventions: Vital Signs Last Done: 11/02/18 09:58 Status ED Status: With Doctor
[2018-11-02 10:50] LABS: Baso % (Auto) 0.4 % (0.0-2.0); Eos % (Auto) 0.3 % (0.0-4.0); Hematocrit 40.6 % (35.0-46.0); Hemoglobin 14.4 gm/dL (11.6-15.3); Lymph # (Auto) 1.4 th/mm3 (1.0-4.8); Lymph % (Auto) 21.2 % (9.0-44.0); Mean Corpuscular HGB Conc 35.5 % (32.0-36.0); Mean Corpuscular Hemoglobin 34.1 pg (27.0-34.0); Mean Corpuscular Volume 95.9 fL (80.0-100.0); Mono # (Auto) 0.4 th/mm3 (0.0-0.9); Mono % (Auto) 5.4 % (0.0-8.0); Neut # (Auto) 4.9 th/mm3 (1.8-7.7); Neut % (Auto) 72.7 % (16.0-70.0); Platelet Count 224 th/mm3 (150-450); Red Blood Count 4.23 mil/mm3 (4.00-5.30); Red Cell Distribution Width 13.1 % (11.6-17.2); White Blood Count 6.7 th/mm3 (4.0-11.0)
[2018-11-02] MEDS ORDERED: Sod Chloride 0.9% Inj 1,000 ML IV.SIG ONE (10:51)
--- NOTE | 2018-11-02 11:00 | CT ---
EXAM DATE: 11/02/2018 10:55 AM EST AGE/SEX: 68 years / Female INDICATIONS: Cephalgia and dizziness. CLINICAL DATA: This is the patient's initial encounter. Patient reports that signs and symptoms have been present for 1 day and indicates a pain score of 10/10. MEDICAL/SURGICAL HISTORY: None. Hysterectomy. RADIATION DOSE: 56.35 CTDI (mGy) COMPARISON: No prior exams available for comparison. TECHNIQUE: CT of the head without contrast. Using automated exposure control and adjustment of the mA and/or kV according to patient size, radiation dose was kept as low as reasonably achievable to ob tain optimal diagnostic quality images. DICOM format image data is available electronically for revi ew and comparison. FINDINGS: Cerebrum: The ventricles are normal for age. No evidence of midline shift, mass lesion, hemorrhage or acute infarction. No extraaxial fluid collections are seen. Posterior Fossa: The cerebellum and brainstem are intact. The 4th ventricle is midline. The cerebe llopontine angle is unremarkable. Extracranial: The visualized portion of the orbits is intact. Skull: The calvaria is intact. No evidence of skull fracture. CONCLUSION: 1. Negative CT Head non contrast. . Electronically signed by: Shay Means MD Board Certified Radiologist 11/02/2018 10:58 AM EST
[2018-11-02 11:03] LABS: Bilirubin,Urine Negative (Negative); Clarity,Urine Clear (Clear); Color,Urine Yellow (Yellw/Straw); Glucose,Urine (UA) Negative (Negative); Leukocyte Esterase,Urine Negative (Negative); Nitrite,Urine Negative (Negative); Specific Gravity,Urine 1.008 (1.002-1.035)
[2018-11-02 11:06] LABS: Amphetamine Screen,Urine Neg (Neg); Barbiturate Screen,Urine Neg (Neg); Cannabinoid Screen,Urine Neg (Neg); Cocaine Screen,Urine Neg (Neg); Opiate Screen,Urine Neg (Neg)
[2018-11-02 11:12] LABS: Alanine Aminotransferase 22 U/L (10-53); Albumin 4.4 g/dL (3.4-5.0); Anion Gap 7 meq/L (5-15); Aspartate Aminotransferase 16 U/L (15-37); Blood Urea Nitrogen 8 mg/dL (7-18); Calcium 9.2 mg/dL (8.5-10.1); Carbon Dioxide 22.6 meq/L (21.0-32.0); Chloride 109 meq/L (98-107); Glomerular Filtration Rate Greater Than 89 mL/min (>89); Glucose,Random 113 mg/dL (74-106); Potassium 3.8 meq/L (3.5-5.1); Sodium 139 meq/L (136-145)
[2018-11-02 11:15] LABS: Alkaline Phosphatase 75 U/L (45-117); Total Protein 7.5 g/dL (6.4-8.2)
--- NOTE | 2018-11-02 12:35 | P.HPFP ---
History of Present Illness Primary Care Physician: No Primary Care Physician <Vivek Jean Gloria 11/02/18 18:08> No Primary Care Physician <Vivek Toth 11/02/18 12:34> History of Present Illness: Patient 68-year-old female presenting today for dizziness. Patient reports she has had dizziness for the last 3-4 days. She notes she has difficulty getting up from her bed or her toilet. After standing up the room is spinning around her. She states that after this happens she has to walk slow until she can go lie down again. This happens every time she stands up. She also reports that approximately 1 week ago she had a significant left-sided headache, with excruciating pain. Is alleviated with Tylenol. It resolved on its own same day. She also reports that she gets dizzy when she looks up with her head or down. She states is difficult to look left with her head. She reports that she has abdominal pain which is been present for years. States that no one has been able to diagnose her at this time. It is a dull lower abdominal pain which is stable and constant. She denies burning during urination, increase in frequency, back pain, diarrhea, constipation, nausea, vomiting, fever, chills, change in vision, lightheadedness , chest pain, shortness of breath, change in vision. History Medical: Denies Surgical: Hysterectomy, lysis of adhesions Family Mother: Passed at 54 from colon cancer Father: EtOH abuse, passed from PNA Social EtOH: Denies Tobacco: Smokes 1/2 pack per for 15 years Drugs: None <Vivek Toth 11/02/18 17:09> - Diagnosis (1) Dizziness (2) Chronic abdominal pain <Vivek Jean Gloria 11/02/18 18:08> (1) Dizziness (2) Chronic abdominal pain <Vivek Toth 11/02/18 16:09> Review of Systems All other systems reviewed negative except as stated in HPI <Vivek Toth 11/02/18 17:09> PMFSH - History History Provided By: Patient <Vivek Toth 11/02/18 12:34> - Medical History Medical History: Medical History (Last Reviewed 11/02/18 @ 11:24 by Shane Velázquez) History of hysterectomy Smoker <Vivek Jean 11/02/18 18:08> Medical History (Last Reviewed 11/02/18 @ 11:24 by Shane Velázquez) History of hysterectomy Smoker <Vivek Toth 11/02/18 12:34> - Tobacco History Second Hand Smoke Exposure: Yes <Vivek Toth 11/02/18 12:34> Tobacco Use In Past 30 Days: Yes <Vivek Toth 11/02/18 12:34> Smoking Status: Current every day smoker <Vivek Toth 11/02/18 12:34 > Tobacco Type: Cigarettes <Vivek Toth 11/02/18 12:34> - Alcohol History How Often Do You Have a Drink Containing Alcohol: Never <Vivek Toth 11/02/18 12:34> - Substance Use History Substance History: No History of Abuse <Vivek Toth 11/02/18 12:34> - Travel History Recent Travel in the [facility] Within the Last 8 Weeks: No <Vivek Toth 12:34> Recent Travel Out of the Country Within the Last 8 Weeks: No <Vivek Toth 11/02/18 12:34> - Immunization History Tetanus Immunization: >5 Years <Vivek Toth 11/02/18 12:34> Medications and Allergies Allergies Allergy/AdvReac Type Severity Reaction Status Date / Time codeine Allergy Severe sob Verified 11/02/18 09:57 iodine Allergy Severe HIVES Verified 11/02/18 09:57 potassium iodide Allergy Severe HIVES Verified 11/02/18 09:57 povidone-iodine Allergy Severe HIVES Verified 11/02/18 09:57 sodium iodide Allergy Severe HIVES Verified 11/02/18 09:57 sodium iodide Allergy Severe HIVES Verified 11/02/18 09:57 <Vivek Jean 11/02/18 18:08> Home Medications Medication Instructions Recorded Confirmed Type No Known Home Medications 11/02/18 11/02/18 History <Vivek Jean 11/02/18 18:08> Active Medications: Active Medications Acetaminophen (Tylenol) 650 mg PO Q4H PRN PRN Reason: Temp > 100.4 Last Admin: 11/02/18 16:40 Dose: 650 mg Al Hydroxide/Mg Hydroxide (Milk Of Magnesia Liq) 30 ml PO Q12H PRN PRN Reason: Mild Constipation Bisacodyl (Dulcolax Supp) 10 mg RECTAL DAILY PRN PRN Reason: SEVERE CONSITIPATION Ketorolac Tromethamine (Toradol) 10 mg PO Q6H PRN PRN Reason: PAIN SCALE 1-10 Stop: 11/07/18 16:29 Lactulose (Lactulose Liq) 30 ml PO DAILY PRN PRN Reason: SEVERE CONSITIPATION Meclizine HCl (Antivert) 25 mg PO Q8H PRN PRN Reason: DIZZINESS Ondansetron HCl (Zofran Inj) 4 mg IV.PUSH Q6H PRN PRN Reason: NAUSEA OR VOMITING Senna/Docusate Sodium (Anali-Colace) 1 tab PO BID CRISTINA Sennosides (Senokot) 17.2 mg PO Q12H PRN PRN Reason: Moderate Constipation <Vivek Jean 11/02/18 18:08> Exam Vital signs: Vital Signs 11/02/18 08:55 11/02/18 09:58 11/02/18 10:26 Temperature 97.6 F 97.8 F Pulse Rate 82 73 65 Respiratory Rate 20 16 Blood Pressure 165/76 H 152/67 H Pulse Oximetry 99 100 11/02/18 13:00 11/02/18 15:00 11/02/18 16:22 Temperature 97.8 F 97.9 F 97.0 F L Pulse Rate 76 76 65 Respiratory Rate 16 15 18 Blood Pressure 145/81 H 138/81 117/56 L Pulse Oximetry 99 98 97 Intake & Output 11/01/18 11/02/18 11/02/18 18:59 06:59 18:59 Intake Total 1240 / 1240 Output Total 800 / 800 Balance 440 / 440 Weight 56.699 kg Intake: IV 1000 / 1000 NS Inj 1,000 ML @ Wide Open IV. 1000 / 1000 SIG BOLUS ONE Rx#:[id number] Oral 240 / 240 Output: Urine 800 / 800 Other: # Voids 1 Date of Last Bowel Movement 11/02/18 <Vivek Jean 11/02/18 18:08> Vital Signs 11/02/18 08:55 11/02/18 09:58 11/02/18 10:26 Temperature 97.6 F 97.8 F Pulse Rate 82 73 65 Respiratory Rate 20 16 Blood Pressure 165/76 H 152/67 H Pulse Oximetry 99 100 Intake & Output 11/01/18 11/02/18 11/02/18 18:59 06:59 18:59 Intake Total 1000 / 1000 Output Total 600 / 600 Balance 400 / 400 Weight 56.699 kg Intake: IV 1000 / 1000 NS Inj 1,000 ML @ Wide Open IV. 1000 / 1000 SIG BOLUS ONE Rx#:[id number] Output: Urine 600 / 600 Other: # Voids 1 <Vivek Toth - 11/02/18 12:34> Narrative: GENERAL: Laying in bed, complaining of dizziness SKIN: Warm and dry. HEAD: Atraumatic. Normocephalic. EYES: Pupils equal and round. No scleral icterus. No injection or drainage. ENT: No nasal bleeding or discharge. Mucous membranes pink and moist. NECK: Trachea midline. No JVD. CARDIOVASCULAR: Regular rate and rhythm. RESPIRATORY: No accessory muscle use. Clear to auscultation. Breath sounds equal bilaterally. GASTROINTESTINAL: Abdomen soft, non-tender, nondistended. Hepatic and splenic margins not palpable. MUSCULOSKELETAL: Extremities without clubbing, cyanosis, or edema. No obvious deformities. NEUROLOGICAL: Awake and alert. No obvious cranial nerve deficits. Motor grossly within normal limits. Five out of 5 muscle strength in the arms and legs. Normal speech. PSYCHIATRIC: Appropriate mood and affect; insight and judgment normal. Patient refused [place]-Hallpike and Carmella maneuver. <Long Vivek Mari - 11/02/18 17:09> Results - Labs Result diagrams: 11/02/18 10:30 11/02/18 10:30 <TedVivek Fatuma - 11/02/18 18:08> Abnormal lab results 11/02/18 11/02/18 11/02/18 Range/Units 10:15 10:30 10:30 MCH 34.1 H (27.0-34.0) pg Neut % (Auto) 72.7 H (16.0-70.0) % Chloride 109 H (98-107) meq/L Random Glucose 113 H (74-106) mg/dL Urine Ketones Trace H (Negative) mg/dL Urine Occult Blood Small H (Negative) Urine RBC 4 H (0-3) /hpf Short CBC 11/02/18 Range/Units 10:30 WBC 6.7 (4.0-11.0) th/mm3 Hgb 14.4 (11.6-15.3) gm/dL Hct 40.6 (35.0-46.0) % Plt Count 224 (150-450) th/mm3 BMP 11/02/18 10:30 Sodium 139 Potassium 3.8 Chloride 109 H Carbon Dioxide 22.6 BUN 8 Creatinine 0.53 Calcium 9.2 Liver Function 11/02/18 Range/Units 10:30 Total Bilirubin 0.5 (0.2-1.0) mg/dL AST 16 (15-37) U/L ALT 22 (10-53) U/L Alkaline Phosphatase 75 (45-117) U/L Albumin 4.4 (3.4-5.0) g/dL Urine 11/02/18 Range/Units 10:15 Urine Color Yellow (Yellw/Straw) Urine Clarity Clear (Clear) Urine pH 6.0 (5.0-8.5) Ur Specific [place] 1.008 (1.002-1.035) Urine Protein Negative (Neg-Trace) mg/dL Urine Glucose (UA) Negative (Negative) mg/dL <Vivek Jean L - 11/02/18 18:08> Abnormal lab results 11/02/18 11/02/18 11/02/18 Range/Units 10:15 10:30 10:30 MCH 34.1 H (27.0-34.0) pg Neut % (Auto) 72.7 H (16.0-70.0) % Chloride 109 H (98-107) meq/L Random Glucose 113 H (74-106) mg/dL Urine Ketones Trace H (Negative) mg/dL Urine Occult Blood Small H (Negative) Urine RBC 4 H (0-3) /hpf Short CBC 11/02/18 Range/Units 10:30 WBC 6.7 (4.0-11.0) th/mm3 Hgb 14.4 (11.6-15.3) gm/dL Hct 40.6 (35.0-46.0) % Plt Count 224 (150-450) th/mm3 BMP 11/02/18 10:30 Sodium 139 Potassium 3.8 Chloride 109 H Carbon Dioxide 22.6 BUN 8 Creatinine 0.53 Calcium 9.2 Liver Function 11/02/18 Range/Units 10:30 Total Bilirubin 0.5 (0.2-1.0) mg/dL AST 16 (15-37) U/L ALT 22 (10-53) U/L Alkaline Phosphatase 75 (45-117) U/L Albumin 4.4 (3.4-5.0) g/dL Urine 11/02/18 Range/Units 10:15 Urine Color Yellow (Yellw/Straw) Urine Clarity Clear (Clear) Urine pH 6.0 (5.0-8.5) Ur Specific [place] 1.008 (1.002-1.035) Urine Protein Negative (Neg-Trace) mg/dL Urine Glucose (UA) Negative (Negative) mg/dL <Vivek Toth 11/02/18 12:34> - Imaging Impressions Head CT 11/02/18 10:26 CONCLUSION: 1. Negative CT Head non contrast. . <Vivek Jean 11/02/18 18:08> Impressions Head CT 11/02/18 10:26 CONCLUSION: 1. Negative CT Head non contrast. . <Vivek Toth 11/02/18 12:34> Caprini VTE Risk Assessment Caprini VTE Risk Assessment: Moderate/High Risk (score >= 2) <Vivek Toth 11/02/18 17:09> Caprini Risk Assessment Model: Point Value = 1 Point Value = 2 Point Value = 3 Point Value = 5 Age 41-60 Minor surgery BMI > 25 kg/m2 Swollen legs Varicose veins or History of unexplained or recurrent spontaneous Oral contraceptives or hormone replacement Sepsis (< 1 month) Serious lung disease, including pneumonia (< 1 month) Abnormal pulmonary function Acute myocardial infarction Congestive heart failure (< 1 month) History of inflammatory bowel disease Medical patient at bed rest Age 61-74 Arthroscopic surgery Major open surgery (> 45 min) Laparoscopic surgery (> 45 min) Malignancy Confined to bed (> 72 hours) Immobilizing plaster cast Central venous access Age >= 75 History of VTE Family history of VTE Factor V Leiden Prothrombin [id number] Lupus anticoagulant Anticardiolipin antibodies Elevated serum homocysteine Heparin-induced thrombocytopenia Other congenital or acquired thrombophilia Stroke (< 1 month) Elective arthroplasty Hip, pelvis, or leg fracture Acute spinal cord injury (< 1 month) <Vivek Jean 11/02/18 18:08> Point Value = 1 Point Value = 2 Point Value = 3 Point Value = 5 Age 41-60 Minor surgery BMI > 25 kg/m2 Swollen legs Varicose veins or History of unexplained or recurrent spontaneous Oral contraceptives or hormone replacement Sepsis (< 1 month) Serious lung disease, including pneumonia (< 1 month) Abnormal pulmonary function Acute myocardial infarction Congestive heart failure (< 1 month) History of inflammatory bowel disease Medical patient at bed rest Age 61-74 Arthroscopic surgery Major open surgery (> 45 min) Laparoscopic surgery (> 45 min) Malignancy Confined to bed (> 72 hours) Immobilizing plaster cast Central venous access Age >= 75 History of VTE Family history of VTE Factor V Leiden Prothrombin [id number] Lupus anticoagulant Anticardiolipin antibodies Elevated serum homocysteine Heparin-induced thrombocytopenia Other congenital or acquired thrombophilia Stroke (< 1 month) Elective arthroplasty Hip, pelvis, or leg fracture Acute spinal cord injury (< 1 month) <Vivek Toth - 11/02/18 12:34> Prophylaxis Regimen: Total Risk Factor Score Risk Level Prophylaxis Regimen 0-1 Low Early ambulation 2 Moderate Order ONE of the following: *Sequential Compression Device (SCD) *Heparin 5000 units SQ BID 3-4 Higher Order ONE of the following medications: *Heparin 5000 units SQ TID *Enoxaparin/Lovenox 40 mg SQ daily (WT < 150 kg, CrCl > 30 mL/min) *Enoxaparin/Lovenox 30 mg SQ daily (WT < 150 kg, CrCl > 10-29 mL/min) *Enoxaparin/Lovenox 30 mg SQ BID (WT < 150 kg, CrCl > 30 mL/min) AND/OR *Sequential Compression Device (SCD) 5 or more Highest Order ONE of the following medications: *Heparin 5000 units SQ TID (Preferred with Epidurals) *Enoxaparin/Lovenox 40 mg SQ daily (WT < 150 kg, CrCl > 30 mL/min) *Enoxaparin/Lovenox 30 mg SQ daily (WT < 150 kg, CrCl > 10-29 mL/min) *Enoxaparin/Lovenox 30 mg SQ BID (WT < 150 kg, CrCl > 30 mL/min) AND *Sequential Compression Device (SCD) <Vivek Jean - 11/02/18 18:08> Total Risk Factor Score Risk Level Prophylaxis Regimen 0-1 Low Early ambulation 2 Moderate Order ONE of the following: *Sequential Compression Device (SCD) *Heparin 5000 units SQ BID 3-4 Higher Order ONE of the following medications: *Heparin 5000 units SQ TID *Enoxaparin/Lovenox 40 mg SQ daily (WT < 150 kg, CrCl > 30 mL/min) *Enoxaparin/Lovenox 30 mg SQ daily (WT < 150 kg, CrCl > 10-29 mL/min) *Enoxaparin/Lovenox 30 mg SQ BID (WT < 150 kg, CrCl > 30 mL/min) AND/OR *Sequential Compression Device (SCD) 5 or more Highest Order ONE of the following medications: *Heparin 5000 units SQ TID (Preferred with Epidurals) *Enoxaparin/Lovenox 40 mg SQ daily (WT < 150 kg, CrCl > 30 mL/min) *Enoxaparin/Lovenox 30 mg SQ daily (WT < 150 kg, CrCl > 10-29 mL/min) *Enoxaparin/Lovenox 30 mg SQ BID (WT < 150 kg, CrCl > 30 mL/min) AND *Sequential Compression Device (SCD) <Vivek Toth - 11/02/18 12:34> Assessment and Plan - Assessment (1) Dizziness Code(s): R42 - Dizziness and giddiness Status: Acute (2) Chronic abdominal pain Code(s): R10.9 - Unspecified abdominal pain; G89.29 - Other chronic pain Status: Acute <Vivek Jean - 11/02/18 18:08> (1) Dizziness Code(s): R42 - Dizziness and giddiness Status: Acute Plan: Dizziness every time patient stands up. Potentially vertigo secondary to BPPV, patient refused Carmella and [place]-Hallpike maneuvers. Head CT negative. -Meclizine as needed every 8 hours -Continue hydration and regular diet -Toradol as needed for pain -Consider further imaging if no resolution -Zofran PRN nausea -Follow-up ESR, CRP, thyroid, B12 (2) Chronic abdominal pain Code(s): R10.9 - Unspecified abdominal pain; G89.29 - Other chronic pain Status: Acute Plan: Chronic abdominal pain. No significant change or increase. -Symptomatic management, no further workup at this time unless significantly worsened <Vivek Toth - 11/02/18 16:09> - Attending Attestation Attending note: I was present for the entire history and physical exam and agree with documentation above. This patient presents with a several day history of vertigo. It is exacerbated by looking to the left, which suggests a possible peripheral cause, such as BPPV. No focal deficits on neurological exam. I see mild nystagmus with extreme left lateral gaze. She declines [place] Hallpike or Carmella maneuver. Would recommend imaging with MRI/MRA brain to rule out a central cause. If these are negative, she may benefit from outpatient vestibular rehab. Also agree with basic lab workup as described above. <Vivek Jean - 11/02/18 18:08>
[2018-11-02] MEDS ORDERED: Bisacodyl 10 MG Supp RECTAL PRN (16:18)
[2018-11-02] MEDS ORDERED: Ketorolac 10 MG Tablet PO PRN (16:30)
[2018-11-02] MEDS: Acetaminophen 325 MG Tablet PO PRN (16:40)
[2018-11-02 18:16] LABS: Free T4 (Free Thyroxine) 1.17 ng/dL (0.76-1.46); Vitamin B12 603 pg/mL (193-986)
--- NOTE | 2018-11-02 19:29 | P.PNADD ---
Addendum to Inpatient Note Reason for Addendum: Additional Documentation Additional information: ADDENDUM Subjective: Patient is a 68F here for vertigo symptoms, abdominal pain, and inability to ambulate. Residents were paged regarding persistent symptoms and patient's specific request for MD evaluation at bedside. She was seen at bedside ~7pm, and patient complains of continued symptoms of abdominal pain and dizziness. She says she is dizzy in bed and dizzy upon moving. She states that after she ate dinner her abdominal pain got worse, which she reports is chronic. She denies blood in stool but states she has bowel movements every other day on overage, small in caliber but not hard. She reports she is still unable to ambulate without dizziness but has ambulated per nurses to the bathroom without assistance. She also mentioned that she has a long history of hematuria of unknown cause and asked about results of the study. Additionally, patient is requesting imaging for her neck which has what she reports to be migrating pain and her abdomen. Exam not performed at time of interview due to patient preference. Food is at bedside, and patient has consumed an entire Gatorade and some of her meal. On visual inspection, she is alert, oriented, and moves briskly in the bed. She does appear to be uncomfortable but is distractible. A/P: 68F with vertigo, neck discomfort, and abdominal pain with hematuria. Differential is broad and central cause of vertigo cannot be excluded. Regarding abdominal pain, patient states it is chronic, thus differential is also broad including but not limited to renal sources (especially given hematuria), masses, constipation, [employer] sources, appendix, vascular disease, etc. She has history of pelvic adhesions per report but no documented history of appendectomy. No indication based on chronicity and moderate severity of abdominal symptoms to get CT scan at this time but will obtain if symptoms worsen or persist. Given hematuria, however, will start with abdominal US and expand to further imaging as indicated. Will order MRA/MRI noncontrast of brain at this time to further workup vertigo, discussed with patient. Patient requests half dose of meclizine to start with, ordered. All questions answered.
[2018-11-02] MEDS: Senna/Docusate Sodium 8.6/50 MG Tablet PO SCH (20:37)
[2018-11-03 06:03] LABS: Baso % (Auto) 0.4 % (0.0-2.0); Eos # (Auto) 0.1 th/mm3 (0.0-0.4); Eos % (Auto) 1.3 % (0.0-4.0); Hematocrit 41.5 % (35.0-46.0); Hemoglobin 14.1 gm/dL (11.6-15.3); Lymph # (Auto) 1.9 th/mm3 (1.0-4.8); Lymph % (Auto) 32.6 % (9.0-44.0); Mean Corpuscular HGB Conc 34.1 % (32.0-36.0); Mean Corpuscular Hemoglobin 32.9 pg (27.0-34.0); Mean Corpuscular Volume 96.5 fL (80.0-100.0); Mean Platelet Volume 8.1 fL (7.0-11.0); Mono # (Auto) 0.4 th/mm3 (0.0-0.9); Mono % (Auto) 7.4 % (0.0-8.0); Neut # (Auto) 3.5 th/mm3 (1.8-7.7); Neut % (Auto) 58.3 % (16.0-70.0); Platelet Count 212 th/mm3 (150-450); Red Cell Distribution Width 12.5 % (11.6-17.2); White Blood Count 5.9 th/mm3 (4.0-11.0)
[2018-11-03 06:29] LABS: Carbon Dioxide 25.4 meq/L (21.0-32.0); Potassium 3.7 meq/L (3.5-5.1)
[2018-11-03] MEDS: Acetaminophen 325 MG Tablet PO PRN (08:52)
--- NOTE | 2018-11-03 09:34 | US ---
EXAM DATE: 11/03/2018 9:30 AM EST AGE/SEX: 68 years / Female INDICATIONS: Abdominal pain. CLINICAL DATA: This is the patient's initial encounter. Patient reports that signs and symptoms have been present for 1 month and indicates a pain score of 3/10. MEDICAL/SURGICAL HISTORY: . Abdominal pain. Hysterectomy. COMPARISON: [facility] – [place], CT ABDOMEN & PELVIS W/O CONTRAST, 04/25/2017. . MEASUREMENTS: Liver:__ 15.0 cm. Common Bile Duct:___ 4mm. Right Kidney:___9.2 x 3.7 x 4.5 cm. Left Kidney:___10.6 x 5.3 x 4.5 cm. Spleen:___9.0 cm. FINDINGS: Liver: Normal echogenicity without focal lesion or ductal dilatation. Portal Vein: Hepatopedal flow seen in portal vein. Common Duct: No intraluminal mass or stone visualized. Gallbladder: Demonstrates no wall thickening or pericholecystic fluid. No stones visualized. Pancreas: The visualized portions are within normal limits Right Kidney: 1.1 cm cyst midpole right kidney. Normal echogenicity and cortical thickness. Left Kidney: Normal echogenicity and cortical thickness. No mass or hydronephrosis. Ascites: None Pleural Effusion: None Spleen: No focal lesion. Aorta: Non aneurysmal. IVC: Within normal limits Other: No ascites CONCLUSION: 1. Small renal cyst otherwise negative Electronically signed by: Nikhil Macario MD Board Certified Radiologist 11/03/2018 9:33 AM EST
[2018-11-03] MEDS: Senna/Docusate Sodium 8.6/50 MG Tablet PO SCH ×2 (10:16→22:03)
--- NOTE | 2018-11-03 11:27 | P.PNFP ---
Subjective Interval history: 68 year old female here with a several day history of vertigo. Worsened when looking to the left. This morning, seen with resident team. She continues to have vertigo. Complaining of cramping neck pain posterior, on the left and sometimes the right side as well, feels cramping in the trapezius muscles and tension in her neck. Able to move her neck without issue. She feels especially dizzy, with room spinning, when standing up. Has not passed out. Does not have a history of vertigo. Does have history of neck pain. No history of migraines of headaches. Also complaining of mid lower abdominal pain that is chronic. Had adhesiolysis in the past. Feels nauseous, no vomiting. No bowel movement while in hospital. Does not feel constipated at this time. Results - Labs Result diagrams: 11/03/18 05:10 11/03/18 05:10 Abnormal lab results 11/03/18 Range/Units 05:10 Chloride 109 H (98-107) meq/L Short CBC 11/03/18 Range/Units 05:10 WBC 5.9 (4.0-11.0) th/mm3 Hgb 14.1 (11.6-15.3) gm/dL Hct 41.5 (35.0-46.0) % Plt Count 212 (150-450) th/mm3 BMP 11/03/18 05:10 Sodium 141 Potassium 3.7 Chloride 109 H Carbon Dioxide 25.4 BUN 11 Creatinine 0.66 Calcium 9.0 - Imaging Impressions Head CT 11/02/18 10:26 CONCLUSION: 1. Negative CT Head non contrast. . Abdomen Ultrasound 11/03/18 00:00 CONCLUSION: 1. Small renal cyst otherwise negative Physical Exam Vital signs: Vital Signs 11/02/18 13:00 11/02/18 15:00 11/02/18 16:22 Temperature 97.8 F 97.9 F 97.0 F L Pulse Rate 76 76 65 Respiratory Rate 16 15 18 Blood Pressure 145/81 H 138/81 117/56 L Pulse Oximetry 99 98 97 11/02/18 23:44 11/03/18 04:00 11/03/18 08:00 Temperature 96.2 F L 98.5 F Pulse Rate 66 64 64 Respiratory Rate 16 16 Blood Pressure 115/53 L 111/53 L 115/55 L Pulse Oximetry 97 96 98 Intake & Output 11/02/18 11/03/18 11/03/18 18:59 06:59 18:59 Intake Total 1240 / 1240 Output Total 800 / 800 Balance 440 / 440 Weight 56.699 kg Intake: IV 1000 / 1000 NS Inj 1,000 ML @ Wide Open IV. 1000 / 1000 SIG BOLUS ONE Rx#:[id number] Oral 240 / 240 Output: Urine 800 / 800 Other: # Voids 1 5 Date of Last Bowel Movement 11/02/18 11/02/18 Narrative: General: Sitting up in bed, no distress Skin: No rashes or lesions HEENT: Normocephalic, no conjunctivitis, no nasal discharge, normal pharynx and oral mucosa Neck: Supple, no pain with palpation of the cervical vertebrae, no pain with palpation of the trapezius muscles. No lymphadenopathy or thyromegaly. CV: RRR, no murmurs, rubs, or gallops, regular pulses Lungs: CTAB Abdomen: Soft, nontender, nondistended, normal bowel sounds, no palpable masses , no organomegaly MSK: See neck exam above Neuro: CN intact, normal upper and lower extremity strength and sensation. HINTS exam is negative. 2 beats horizontal nystagmus on far lateral gaze to the left. Declines [place]-Hallpike and Carmella. Assessment and Plan - Assessment (1) Dizziness Code(s): R42 - Dizziness and giddiness Status: Acute Plan: Vertigo, central versus peripheral cause. Onset several days ago. Fairly constant in nature, but exacerbated by looking left. Also with left neck pain, but benign physical exam of the neck. No neck stiffness, no photophobia, no other migraine symptoms. DDX includes peripheral (BPPV, vestibular neuritis, Meniere, etc) versus central (posterior circulation, cerebellar stroke). B12, CRP, ESR, thyroid studies normal. - MRI/MRA of brain/neck to rule out a central cause. - Meclizine as needed although this is unlikely to help - Toradol as needed for neck pain - Zofran as needed for nausea - Declines Carmella maneuver although she could benefit from this - Vestibular rehab as an outpatient if workup above is negative (2) Chronic abdominal pain Code(s): R10.9 - Unspecified abdominal pain; G89.29 - Other chronic pain Status: Acute Plan: Chronic abdominal pain. No significant change or increase. Benign abdominal exam, no masses palpated. Abdominal ultrasound essentially negative. History of adhesiolysis in the past. -Recommend outpatient workup. - Assessment and Plan Discussed Condition With: Dr. De La Torre, Dr. Alves, Dr. Reinoso Discharge Planning: Pending MRI/MRA. If these are negative, I believe she can safely be discharged. Recommend following up with primary care. May benefit from vestibular rehab as an outpatient for vertigo. Needs further workup for abdominal pain in outpatient setting.
--- NOTE | 2018-11-03 12:47 | MR ---
EXAM DATE: 11/03/2018 12:45 PM EST AGE/SEX: 68 years / Female INDICATIONS: Cephalgia. CLINICAL DATA: This is the patient's subsequent encounter. Patient reports that signs and symptoms h ave been present for 2 days and indicates a pain score of 8/10. MEDICAL/SURGICAL HISTORY: None. Hysterectomy. adhesion surgery COMPARISON: [facility] – [place], MR HEAD W & W/O CONTRAST, 11/03/2018. . TECHNIQUE: 3D [id number] MRA was performed. Source images, multiplanar STS MIP, and 3D volum e MIP reconstructions were reviewed. FINDINGS: There is excellent visualization of the major intracranial arteries out to the second-order branch ve ssels. There is no evidence for aneurysm, vessel truncation or stenosis, and no evidence for vascula r malformation. CONCLUSION: 1. Negative for aneurysm or vascular displacement. 2. Small aneurysms on the skull base and basilar artery can be missed by MRI. Electronically signed by: Nikhil Macario MD Board Certified Radiologist 11/03/2018 12:46 PM EST
--- NOTE | 2018-11-03 13:06 | MR ---
EXAM DATE: 11/03/2018 1:00 PM EST AGE/SEX: 68 years / Female INDICATIONS: Cephalgia. Radiating to neck. CLINICAL DATA: This is the patient's subsequent encounter. Patient reports that signs and symptoms h ave been present for 4 - 6 days and indicates a pain score of 8/10. MEDICAL/SURGICAL HISTORY: None. Hysterectomy. adhesion surgery COMPARISON: No prior exams available for comparison. TECHNIQUE: Multiplanar, multisequence examination of the brain was performed without contrast. FINDINGS: Cerebrum: The ventricles are normal for age. No evidence of midline shift, mass lesion, hemorrhage or acute infarction. No extraaxial fluid collections are seen. The pituitary gland and suprasellar cistern are normal in configuration. White Matter: No significant signal abnormalities are seen in the white matter. Posterior Fossa: The cerebellum and brainstem are intact. The 4th ventricle is midline. The cerebel lopontine angle is unremarkable. The cerebellar tonsils are normal in position. Diffusion Imaging: No focal areas of restricted diffusion are seen. No evidence of acute infarction . Extracranial: The visualized portions of the orbits and paranasal sinuses are unremarkable. CONCLUSION: 1. Negative MRI of the brain Electronically signed by: Nikhil Macario MD Board Certified Radiologist 11/03/2018 1:04 PM EST
[2018-11-03] MEDS ORDERED: Scopalamine 1.5 MG Patch T-DERMAL ONE (18:00)
--- NOTE | 2018-11-03 18:43 | P.PNADD ---
Addendum to Inpatient Note Reason for Addendum: Additional Documentation Additional information: Called by nursing staff at time of discharge for change in patient's symptoms. Patient reports that she is unable to stand up without falling. She states that when she stands she becomes so dizzy that she cannot stay standing, will fall backwards into bed. Saw and evaluated patient. Patient continues to have dizziness on standing or turning her head to the left. No other significant changes in symptoms. States she cannot walk at this time without feeling dizzy and falling down. Denies nausea, vomiting, fever, chills, chest pain, left arm or jaw pain, changes in vision, localized weakness, slurred speech, confusion. Reviewed imaging with patient. -Neurology consult for increased, intractable dizziness affecting gait stability -Scopolamine patch -PT reevaluation
[2018-11-04] MEDS: Acetaminophen 325 MG Tablet PO PRN ×2 (03:58→06:32)
[2018-11-04 04:36] LABS: Bilirubin,Urine Negative (Negative); Clarity,Urine Clear (Clear); Color,Urine Yellow (Yellw/Straw); Glucose,Urine (UA) Negative (Negative); Leukocyte Esterase,Urine Negative (Negative); Nitrite,Urine Negative (Negative); Specific Gravity,Urine 1.014 (1.002-1.035)
[2018-11-04] MEDS: Senna/Docusate Sodium 8.6/50 MG Tablet PO SCH ×2 (09:50→20:09)
--- NOTE | 2018-11-04 11:22 | P.PNFP ---
Addendum entered and electronically signed by Brooke Reyes MD, R1 14:32: Tonopen used on patient's corneas bilaterally. R eye: 21 mm Hg Left eye: 19 mm Hg Patient denied loss of vision. Original Note: Subjective Interval history: Patient seen and examined at bedside this morning. Continues to complain of left-sided neck pain. Unable to move her head to the left because she becomes acutely dizzy. Is asking for the neurologist to see her. Denies physicians from trying the Carmella maneuver. Complaining of dizziness and inability to walk. Explained at length our thoughts on her disease process being an inner ear problem. Educated patient on the importance of going to vestibular rehab to help with vertigo symptoms. Patient became angry saying that she was unable to go to rehab due to being unable to walk. Relayed to patient that the Carmella maneuver could be beneficial and therapeutic but patient denied maneuver at this time. All questions were answered at bedside. <Brooke Keith - 11/04/18 13:56> Results - Labs Result diagrams: 11/04/18 15:40 11/04/18 15:40 <Vivek Jean - 11/04/18 16:35> Abnormal lab results 11/04/18 11/04/18 11/04/18 Range/Units 03:40 15:40 15:40 Hgb 15.9 H (11.6-15.3) gm/dL BUN 19 H (7-18) mg/dL Estimated GFR 68 L (>89) mL/min Random Glucose 107 H (74-106) mg/dL Urine Occult Blood Moderate H (Negative) Short CBC 11/04/18 Range/Units 15:40 WBC 9.8 (4.0-11.0) th/mm3 Hgb 15.9 H (11.6-15.3) gm/dL Hct 45.8 (35.0-46.0) % Plt Count 259 (150-450) th/mm3 BMP 11/04/18 15:40 Sodium 138 Potassium 3.8 Chloride 103 Carbon Dioxide 28.6 BUN 19 H Creatinine 0.83 Calcium 10.1 D Liver Function 11/04/18 Range/Units 15:40 Total Bilirubin 0.3 (0.2-1.0) mg/dL AST 19 (15-37) U/L ALT 23 (10-53) U/L Alkaline Phosphatase 77 (45-117) U/L Albumin 4.2 (3.4-5.0) g/dL Urine 11/04/18 Range/Units 03:40 Urine Color Yellow (Yellw/Straw) Urine Clarity Clear (Clear) Urine pH 6.0 (5.0-8.5) Ur Specific [place] 1.014 (1.002-1.035) Urine Protein Negative (Neg-Trace) mg/dL Urine Glucose (UA) Negative (Negative) mg/dL <Vivek Jean - 11/04/18 16:35> Abnormal lab results 11/04/18 Range/Units 03:40 Urine Occult Blood Moderate H (Negative) Urine 11/04/18 Range/Units 03:40 Urine Color Yellow (Yellw/Straw) Urine Clarity Clear (Clear) Urine pH 6.0 (5.0-8.5) Ur Specific [place] 1.014 (1.002-1.035) Urine Protein Negative (Neg-Trace) mg/dL Urine Glucose (UA) Negative (Negative) mg/dL <Brooke Keith - 11/04/18 11:22> - Imaging Impressions Head MRA 11/03/18 00:00 CONCLUSION: 1. Negative for aneurysm or vascular displacement. 2. Small aneurysms on the skull base and basilar artery can be missed by MRI. Head MRI 11/03/18 08:44 CONCLUSION: 1. Negative MRI of the brain <Brooke Keith - 11/04/18 11:22> Physical Exam Vital signs: Vital Signs 11/03/18 20:00 11/04/18 00:00 11/04/18 03:19 Temperature 98.0 F 97.6 F 97.4 F L Pulse Rate 67 63 63 Respiratory Rate 16 12 20 Blood Pressure 104/51 L 110/54 L 121/58 L Pulse Oximetry 96 97 96 11/04/18 08:00 11/04/18 12:00 Temperature 97.8 F 98.3 F Pulse Rate 63 98 H Respiratory Rate 18 18 Blood Pressure 117/57 L 119/59 L Pulse Oximetry 95 94 L Intake & Output 11/03/18 11/04/18 11/04/18 18:59 06:59 18:59 Intake Total 940 / 940 Balance 940 / 940 Intake: Oral 940 / 940 Other: # Voids 7 3 Date of Last Bowel Movement 10/31/18 11/04/18 <Vivek Jean - 11/04/18 16:35> Vital Signs 11/03/18 12:00 11/03/18 20:00 11/04/18 00:00 Temperature 98.1 F 98.0 F 97.6 F Pulse Rate 77 67 63 Respiratory Rate 16 16 12 Blood Pressure 114/56 L 104/51 L 110/54 L Pulse Oximetry 98 96 97 11/04/18 03:19 11/04/18 08:00 Temperature 97.4 F L 97.8 F Pulse Rate 63 63 Respiratory Rate 20 18 Blood Pressure 121/58 L 117/57 L Pulse Oximetry 96 95 Intake & Output 11/03/18 11/04/18 11/04/18 18:59 06:59 18:59 Intake Total 940 / 940 Balance 940 / 940 Intake: Oral 940 / 940 Other: # Voids 7 3 Date of Last Bowel Movement 10/31/18 <Noel ReyesBrooke - 11/04/18 11:22> Narrative: General: Sitting up in bed, no distress Skin: No rashes or lesions. HEENT: Normocephalic, no nasal discharge, normal pharynx and oral mucosa Neck: Supple, no pain with palpation of the cervical vertebrae, no pain with palpation of the trapezius muscles. No lymphadenopathy or thyromegaly. CV: RRR, no murmurs, rubs, or gallops, regular pulses Lungs: CTAB Abdomen: Soft, nontender, nondistended, normal bowel sounds, no palpable masses , no organomegaly MSK: See neck exam above Neuro: Fixed mydriatic left pupil. Direct and indirect light reflex present bilaterally but sluggish on the left. CN 4-12 intact. 5 out of 5 strength in the upper and lower extremities bilaterally. Finger to nose test intact. No pronator drift. Declines Lynndyl-Hallpike and Carmella. <Noel ReyesBrooke - 11/04/18 13:56> Assessment and Plan - Assessment (1) Episodic mydriasis of left eye Code(s): H57.04 - Mydriasis Status: Acute (2) Dizziness Code(s): R42 - Dizziness and giddiness Status: Acute (3) Chronic abdominal pain Code(s): R10.9 - Unspecified abdominal pain; G89.29 - Other chronic pain Status: Acute <Vivek Jean - 11/04/18 16:35> (1) Episodic mydriasis of left eye Code(s): H57.04 - Mydriasis Status: Acute Plan: Fixed and dilated left pupil with sluggish indirect and direct light reflex. Possibly iatrogenic due to scopolamine patch. Visual noel intact. No decrease in vision. MRI/MRA brain negative. Neurology consulted. Appreciate recommendations. (2) Dizziness Code(s): R42 - Dizziness and giddiness Status: Acute Plan: Vertigo, central versus peripheral cause. Onset several days ago. Fairly constant in nature, but exacerbated by looking left. Also with left neck pain, but benign physical exam of the neck. No neck stiffness, no photophobia, no other migraine symptoms. DDX includes peripheral (BPPV, vestibular neuritis, Meniere, etc) versus central (posterior circulation, cerebellar stroke). B12, CRP, ESR, thyroid studies normal. - MRI/MRA of brain/neck negative. - Meclizine as needed although this is unlikely to help - Scopolamine patched D/Cade - Toradol as needed for neck pain - Zofran as needed for nausea - Declines Carmella maneuver although she could benefit from this - Vestibular rehab as an outpatient if workup above is negative (3) Chronic abdominal pain Code(s): R10.9 - Unspecified abdominal pain; G89.29 - Other chronic pain Status: Acute Plan: Chronic abdominal pain. UA positive for monitoring of blood. US abd shows small renal cyst otherwise negative. Recommend outpatient workup. <Brooke Keith - 11/04/18 13:52> - Assessment and Plan Discussed Condition With: Dr. Alves and Dr. Jean <Brooke Keith - 11/04/18 13:56> - Attending Attestation Patient seen with resident team this morning. I agree with documentation above. Patient is very resistant about discharge. Neurology was consulted today to be sure we are not missing something neurological. MRI/MRA brain has been reassuring. Agree with carotid dopplers and CT of the neck given the neck pain. Her neck is supple and no pain with palpation. This morning she has anisocoria. The left pupil is dilated in a lit room. It is sluggishly reactive to light. This is a new finding on today's exam. Exam with Ravinder pen is benign. No conjunctivitis. No ptosis. No facial drooping. Likely iatrogenic from scopolamine patch. Will hold the patch and the Meclizine and monitor. PT re- evaluated her, suggested wheeled walker which we can order for her, given her concerns about gait stability. She would likely benefit from vestibular rehab. She has vague lower abdominal pain with benign abdominal exam. Also with blood in the urine. Will discuss with her that this needs to be followed up in the outpatient setting. May benefit from further investigation with cystoscopy. I do not believe this is an acute problem that needs to be addressed at this hospital visit. Also, she notes a history of having hematuria and was already aware of it. If further imaging is benign, she will likely stay tonight given that it is already later in the day, and we will re-evaluate her tomorrow and likely discharge at that time. <Vivek Jean - 11/04/18 16:35>
[2018-11-04] MEDS: diazePAM 2 MG Tablet PO PRN (14:44)
[2018-11-04] MEDS: Baclofen 10 MG Tablet PO SCH ×2 (14:45→21:09)
--- NOTE | 2018-11-04 14:45 | MB ---
cc: Melodie Kee MD DATE: 11/04/2018 REASON FOR CONSULTATION: Dizziness, vertigo. HISTORY OF PRESENT ILLNESS: A 68-year-old woman who states she has had a few days of vertigo, worse when she looked she is not sure to the left or to the right, but also extending and flexing. Apparently, she woke up with symptoms. She has some pain in her neck as well as cramping. Actually, she is sitting in the chair right now and complaining of spasming in her neck. She also feels weak all over. Unable to walk because of the spinning sensation. I asked her if she feels spinning or dizzy. She states both. She never lost consciousness or awareness. Has no weakness on one side of the body. PAST MEDICAL HISTORY: Denies. PAST SURGICAL HISTORY: Hysterectomy, lysis of adhesions. FAMILY HISTORY: Mother at 54 of colon cancer. Father of ethanol abuse. SOCIAL HISTORY: She smokes 1/2 a pack a day for 15 years. No drugs, no alcohol history. MEDICATIONS: She does not like to take any medications and does not. PHYSICAL EXAMINATION: VITAL SIGNS: Temperature is 98.3, pulse 98, respiratory rate 18, blood pressure is 119/59. NECK: Her neck is supple. No bruits. She does have some paracervical spine tenderness with some tenderness over the paracervical muscles with some spasming. She is very cautious about moving her neck for me. HEENT: Left pupil is dilated. She does have a scopolamine patch. Extraocular muscles are intact. I see some mild end-gaze nystagmus. Face is symmetrical. Tongue midline. Speech is normal. NEUROLOGIC: Motor: She does not exhibit a drift or leg lag. I do not notice any Celeste sign on exam. Reflexes are 2-3+. No clonus. Toes withdraw. Cerebellar unremarkable. Gait cannot be assessed at this time. LABORATORY DATA: Reviewed. Sedimentation rate is 4. CBC today is normal. Chemistries are unremarkable. Thyroid panel, B12 are normal. Urine: Moderate blood, culture not indicated. Tox screen was negative. She had an MRI of the brain that was negative and MRA s[place]ogon of [place] that did not show anything acute. Renal cysts seen on abdominal ultrasound. IMPRESSION: Likely vertigo, but she does have some cervicogenic component. She has pain, so I would like to go ahead and get an MRI of her cervical spine to make sure she does not have any myelopathic findings. Also put her on some Valium 2 mg q.8 hours p.r.n. Stop for scopolamine patch. Depending on findings, further recommendations will be made, but she did decline an Carmella maneuver. I think after she takes diazepam, if she is feeling better, after her C-spine is completed and if her C-spine does not show anything significant, then the Carmella maneuver should be considered as well as vestibular rehabilitation. MD RADHA Joseph/yvette , 01:54 PM , 02:02 PM
[2018-11-04 16:01] LABS: Baso % (Auto) 0.5 % (0.0-2.0); Eos # (Auto) 0.1 th/mm3 (0.0-0.4); Eos % (Auto) 0.7 % (0.0-4.0); Hematocrit 45.8 % (35.0-46.0); Hemoglobin 15.9 gm/dL (11.6-15.3); Lymph # (Auto) 2.8 th/mm3 (1.0-4.8); Lymph % (Auto) 28.5 % (9.0-44.0); Mean Corpuscular HGB Conc 34.8 % (32.0-36.0); Mean Corpuscular Hemoglobin 32.9 pg (27.0-34.0); Mean Corpuscular Volume 94.6 fL (80.0-100.0); Mean Platelet Volume 8.1 fL (7.0-11.0); Mono # (Auto) 0.7 th/mm3 (0.0-0.9); Neut # (Auto) 6.2 th/mm3 (1.8-7.7); Neut % (Auto) 63.3 % (16.0-70.0); Platelet Count 259 th/mm3 (150-450); Red Blood Count 4.84 mil/mm3 (4.00-5.30); Red Cell Distribution Width 12.9 % (11.6-17.2); White Blood Count 9.8 th/mm3 (4.0-11.0)
[2018-11-04 16:29] LABS: Alanine Aminotransferase 23 U/L (10-53); Albumin 4.2 g/dL (3.4-5.0); Alkaline Phosphatase 77 U/L (45-117); Anion Gap 6 meq/L (5-15); Aspartate Aminotransferase 19 U/L (15-37); Blood Urea Nitrogen 19 mg/dL (7-18); Calcium 10.1 mg/dL (8.5-10.1); Carbon Dioxide 28.6 meq/L (21.0-32.0); Chloride 103 meq/L (98-107); Glomerular Filtration Rate 68 mL/min (>89); Glucose,Random 107 mg/dL (74-106); Potassium 3.8 meq/L (3.5-5.1); Sodium 138 meq/L (136-145); Total Protein 7.6 g/dL (6.4-8.2)
[2018-11-05] MEDS: diazePAM 2 MG Tablet PO PRN ×2 (04:23→04:37)
[2018-11-05] MEDS: Baclofen 10 MG Tablet PO SCH (05:00)
--- NOTE | 2018-11-05 09:15 | P.PNFP ---
Subjective Interval history: Patient seen with Dr. Alves this morning. She is sitting up in bed, in no distress. She continues to complain of posterior neck pain, at the base of her skull in the back. She has a supple neck, can touch her neck down to her chest. No blurry vision. No nasal discharge. No chest pain or shortness of breath. No abdominal pain. No nausea, vomiting, diarrhea. Continues to say the room spins when she looks left or when she stands up. Also complaining of pain in lower mid abdomen that is chronic, last 20 years, has not increased in intensity. Discussed discharge plan with her at length with case management social worker Anna Hayes. Results - Labs Result diagrams: 11/04/18 15:40 11/04/18 15:40 Abnormal lab results 11/04/18 11/04/18 Range/Units 15:40 15:40 Hgb 15.9 H (11.6-15.3) gm/dL BUN 19 H (7-18) mg/dL Estimated GFR 68 L (>89) mL/min Random Glucose 107 H (74-106) mg/dL Short CBC 11/04/18 Range/Units 15:40 WBC 9.8 (4.0-11.0) th/mm3 Hgb 15.9 H (11.6-15.3) gm/dL Hct 45.8 (35.0-46.0) % Plt Count 259 (150-450) th/mm3 BMP 11/04/18 15:40 Sodium 138 Potassium 3.8 Chloride 103 Carbon Dioxide 28.6 BUN 19 H Creatinine 0.83 Calcium 10.1 D Liver Function 11/04/18 Range/Units 15:40 Total Bilirubin 0.3 (0.2-1.0) mg/dL AST 19 (15-37) U/L ALT 23 (10-53) U/L Alkaline Phosphatase 77 (45-117) U/L Albumin 4.2 (3.4-5.0) g/dL Physical Exam Vital signs: Vital Signs 11/04/18 12:00 11/04/18 16:00 11/04/18 20:00 Temperature 98.3 F 97.8 F 97.9 F Pulse Rate 98 H 75 67 Respiratory Rate 18 16 16 Blood Pressure 119/59 L 105/51 L 114/53 L Pulse Oximetry 94 L 95 99 11/05/18 00:00 11/05/18 03:06 11/05/18 07:54 Temperature 97.2 F L 97.5 F L 97.9 F Pulse Rate 60 64 63 Respiratory Rate 12 12 16 Blood Pressure 104/46 L 103/51 L 121/59 L Pulse Oximetry 95 96 96 Intake & Output 11/04/18 11/05/18 11/05/18 18:59 06:59 18:59 Intake Total 1350 / 1350 Balance 1350 / 1350 Intake: Oral 1350 / 1350 Other: # Voids 5 4 Date of Last Bowel Movement 11/04/18 11/04/18 # Bowel Movements 1 Narrative: General: Sitting up in bed, no distress Skin: No rashes or lesions HEENT: Normocephalic, no conjunctivitis, no nasal discharge. Left eye is no longer mydriatic. No longer anisocoria. Neck: Supple, able to touch chin to chest, able to look left and right. I can palpate her neck without eliciting pain, except some pain in the trapezius muscles and some just at the base of the skull. Everything I palpate that is painful is muscular in origin. No pain with palpation of the vertebral column. CV: RRR, no murmurs, rubs, gallops, regular pulses, normal cap refill Lungs: CTAB, no wheezes, rales, or rhonchi Abdomen: Soft, nontender, nondistended, normal bowel sounds. There is no pain with palpation in the lower abdomen where she is complaining of pain. No masses palpated in her abdomen. No organomegaly. MSK: Musculoskeletal pain as described in the neck exam. Otherwise, no pain with palpation of the back. Neuro: Awake, alert, cranial nerves intact, EOMI, PERRLA, no longer mydriatic on the left, upper and lower extremity strength is 5/5, sensation in the extremities to light touch is intact. Hearing bilaterally is intact. No facial drooping. Psych: Anxious demeanor, poor insight about her condition, not responding to internal stimuli, perseverates, non-tangential speech, no speech slurring Assessment and Plan - Assessment (1) Dizziness Code(s): R42 - Dizziness and giddiness Status: Acute Plan: Vertigo, central versus peripheral cause. Given negative workup, likely peripheral. Onset several days ago. Fairly constant in nature, but exacerbated by looking left. Also with left neck pain, but benign physical exam of the neck. No neck stiffness, no photophobia, no other migraine symptoms. No fevers or chills. DDX includes peripheral (BPPV, vestibular neuritis, Meniere, etc) versus central (posterior circulation, cerebellar stroke), but workup for central cause has been negative. B12, CRP, ESR, thyroid studies normal. - MRI/MRA of brain/neck negative. - Was unable to complete MRI of the neck. - Toradol as needed for neck pain - Can give short course of Flexeril to help with neck muscle spasms - Zofran as needed for nausea - Declines Carmella maneuver although she could benefit from this - Vestibular rehab as an outpatient, contact information to [facility] was given to patient (2) Chronic abdominal pain Code(s): R10.9 - Unspecified abdominal pain; G89.29 - Other chronic pain Status: Acute Plan: Chronic lower abdominal pain. Benign abdominal exam and no masses palpated on the exam. UA positive blood, which is chronic for her, needs workup as an outpatient. Explain to patient that this needs an outpatient workup. US abdomen shows small renal cyst otherwise negative. Recommend outpatient workup for her chronic abdominal pain. - Assessment and Plan Discussed Condition With: Seen and discussed with Dr. Alves and case management social worker Anna Hayes. Discharge Planning: - Recommend vestibular rehab, information for [facility] was provided to her. - Will send her home with wheeled walker, appreciate physical therapy recommendations. - Can give short course of Flexeril and NSAID to help with neck muscle spasms - Advise patient on fall precautions to take at home. Recommend using her wheeled walker to ambulate for now. - Recommend follow up as an outpatient for her chronic lower abdominal pain - Recommend follow up as an outpatient for persistent hematuria which is chronic for her.
--- NOTE | 2018-11-05 09:15 | P.DS ---
<Vivek Toth - Last Filed: 11/05/18 09:17> Date of admission: 11/02/18 12:03 Primary care physician: No Primary Care Physician Brief History from admission: Patient 68-year-old female presenting today for dizziness. Patient reports she has had dizziness for the last 3-4 days. She notes she has difficulty getting up from her bed or her toilet. After standing up the room is spinning around her. She states that after this happens she has to walk slow until she can go lie down again. This happens every time she stands up. She also reports that approximately 1 week ago she had a significant left-sided headache, with excruciating pain. Is alleviated with Tylenol. It resolved on its own same day. She also reports that she gets dizzy when she looks up with her head or down. She states is difficult to look left with her head. She reports that she has abdominal pain which is been present for years. States that no one has been able to diagnose her at this time. It is a dull lower abdominal pain which is stable and constant. She denies burning during urination, increase in frequency, back pain, diarrhea, constipation, nausea, vomiting, fever, chills, change in vision, lightheadedness, chest pain, shortness of breath, change in vision. History Medical: Denies Surgical: Hysterectomy, lysis of adhesions Family Mother: Passed at 54 from colon cancer Father: EtOH abuse, passed from PNA Social EtOH: Denies Tobacco: Smokes 1/2 pack per for 15 years Drugs: None DS: Diagnosis - Discharge Diagnosis (1) Dizziness Status: Acute (2) Chronic abdominal pain Status: Acute DS: Medications - Discharge Medications Prescriptions: cyclobenzaprine 5 mg PO TID 3 Days #9 tab ibuprofen 600 mg PO TID 5 Days #15 tab DS: Summary Hospital Course: Patient presented on 11/02/18 with complaints of dizziness. Patient also noted abdominal pain, reported to be stable for the past 2 years. Abdominal ultrasound negative. Head CT negative. Head MRI negative. Head MRA negative for aneurysm or vascular displacement. Patient reported dizziness had increased , was intractable, was preventing walking. Neurology consulted. Previous PT assessment recommended home without PT. Additional assessment was placed which again recommended home without PT but may prescribe a wheeled walker if needed. Thoroughly explained the likely vestibular etiology of the patient's problems. Offered an Carmella maneuver each day, patient refused each day. Neurology noted likely vertigo with some cervicogenic component. Recommend an MRI of cervical spine. Then to have an Carmella maneuver if nothing significant on MRI and then to have vestibular rehabilitation. Patient refused MRI of neck. Patient refused Carmella maneuver on day of discharge. Reviewed again the likely vestibular pathology and needed to follow-up with vestibular rehabilitation. Explained the most appropriate step forward would be to have the patient follow-up with outpatient vestibular rehabilitation, and no additional imaging was acutely necessary at this time as she is refusing the MRI. Recommended further outpatient workup for abdominal pain and hematuria. Patient discharged with instructions for vestibular rehab and will walk on . Patient will not be accepted back to the resident service, is not an appropriate learning case. Case discussed with attending. - Time Spent with Patient Total time spent providing and/or coordinating discharge services: Greater than 30 minutes - Quality: VTE Deep Vein Thrombosis/Pulmonary Embolism Present on Admission: No Exam Vital signs: Vital Signs 11/04/18 12:00 11/04/18 16:00 11/04/18 20:00 Temperature 98.3 F 97.8 F 97.9 F Pulse Rate 98 H 75 67 Respiratory Rate 18 16 16 Blood Pressure 119/59 L 105/51 L 114/53 L Pulse Oximetry 94 L 95 99 11/05/18 00:00 11/05/18 03:06 11/05/18 07:54 Temperature 97.2 F L 97.5 F L 97.9 F Pulse Rate 60 64 63 Respiratory Rate 12 12 16 Blood Pressure 104/46 L 103/51 L 121/59 L Pulse Oximetry 95 96 96 Intake & Output 11/04/18 11/05/18 11/05/18 18:59 06:59 18:59 Intake Total 1350 / 1350 Balance 1350 / 1350 Intake: Oral 1350 / 1350 Other: # Voids 5 4 Date of Last Bowel Movement 11/04/18 11/04/18 # Bowel Movements 1 Results Procedures completed during hospitalization: none Labs on day of discharge: Labs from last 24 hours 11/04/18 11/04/18 15:40 15:40 WBC 9.8 RBC 4.84 Hgb 15.9 H Hct 45.8 MCV 94.6 MCH 32.9 MCHC 34.8 RDW 12.9 Plt Count 259 MPV 8.1 Neut % (Auto) 63.3 Lymph % (Auto) 28.5 [place] % (Auto) 7.0 Eos % (Auto) 0.7 Baso % (Auto) 0.5 Neut # (Auto) 6.2 Lymph # (Auto) 2.8 [place] # (Auto) 0.7 Eos # (Auto) 0.1 Baso # (Auto) 0.0 WBC Differential . Differential Comment Auto diff final Sodium 138 Potassium 3.8 Chloride 103 Carbon Dioxide 28.6 Anion Gap 6 BUN 19 H Creatinine 0.83 Estimated GFR 68 L Random Glucose 107 H Calcium 10.1 D Total Bilirubin 0.3 AST 19 ALT 23 Alkaline Phosphatase 77 Total Protein 7.6 Albumin 4.2 - Impressions ITS Impressions Head CT 11/02/18 10:26 CONCLUSION: 1. Negative CT Head non contrast. . Abdomen Ultrasound 11/03/18 00:00 CONCLUSION: 1. Small renal cyst otherwise negative Head MRA 11/03/18 00:00 CONCLUSION: 1. Negative for aneurysm or vascular displacement. 2. Small aneurysms on the skull base and basilar artery can be missed by MRI. Head MRI 11/03/18 08:44 CONCLUSION: 1. Negative MRI of the brain <Vivek Jean - Last Filed: 11/05/18 12:04> Date of admission: 11/02/18 12:03 Primary care physician: No Primary Care Physician DS: Diagnosis - Discharge Diagnosis (1) Dizziness Status: Acute (2) Chronic abdominal pain Status: Acute DS: Summary - Time Spent with Patient Total time spent providing and/or coordinating discharge services: Exam Vital signs: Vital Signs 11/04/18 16:00 11/04/18 20:00 11/05/18 00:00 Temperature 97.8 F 97.9 F 97.2 F L Pulse Rate 75 67 60 Respiratory Rate 16 16 12 Blood Pressure 105/51 L 114/53 L 104/46 L Pulse Oximetry 95 99 95 11/05/18 03:06 11/05/18 07:54 Temperature 97.5 F L 97.9 F Pulse Rate 64 63 Respiratory Rate 12 16 Blood Pressure 103/51 L 121/59 L Pulse Oximetry 96 96 Intake & Output 11/04/18 11/05/18 11/05/18 18:59 06:59 18:59 Intake Total 1350 / 1350 Balance 1350 / 1350 Intake: Oral 1350 / 1350 Other: # Voids 5 4 Date of Last Bowel Movement 11/04/18 11/04/18 # Bowel Movements 1 Results Labs on day of discharge: Labs from last 24 hours 11/04/18 11/04/18 15:40 15:40 WBC 9.8 RBC 4.84 Hgb 15.9 H Hct 45.8 MCV 94.6 MCH 32.9 MCHC 34.8 RDW 12.9 Plt Count 259 MPV 8.1 Neut % (Auto) 63.3 Lymph % (Auto) 28.5 [place] % (Auto) 7.0 Eos % (Auto) 0.7 Baso % (Auto) 0.5 Neut # (Auto) 6.2 Lymph # (Auto) 2.8 [place] # (Auto) 0.7 Eos # (Auto) 0.1 Baso # (Auto) 0.0 WBC Differential . Differential Comment Auto diff final Sodium 138 Potassium 3.8 Chloride 103 Carbon Dioxide 28.6 Anion Gap 6 BUN 19 H Creatinine 0.83 Estimated GFR 68 L Random Glucose 107 H Calcium 10.1 D Total Bilirubin 0.3 AST 19 ALT 23 Alkaline Phosphatase 77 Total Protein 7.6 Albumin 4.2 - Impressions ITS Impressions Head CT 11/02/18 10:26 CONCLUSION: 1. Negative CT Head non contrast. . Abdomen Ultrasound 11/03/18 00:00 CONCLUSION: 1. Small renal cyst otherwise negative Head MRA 11/03/18 00:00 CONCLUSION: 1. Negative for aneurysm or vascular displacement. 2. Small aneurysms on the skull base and basilar artery can be missed by MRI. Head MRI 11/03/18 08:44 CONCLUSION: 1. Negative MRI of the brain - Additional Comments I was present with Dr. Alves for the discharge planning process. We discussed the discharge plan with the patient in detail. She verbalized understanding. Discharge Plan - Discharge Order Discharge Orders: Discharge Order (Routine); Ordered 11/05/18 Ordered By: Vivek Alves R2 - Physicians Team Primary Care Provider: Primary Care Kacie,Carola Attending Provider: Vivek Jean Other Providers: Melodie Kee MD
[2018-11-05] MEDS: Senna/Docusate Sodium 8.6/50 MG Tablet PO SCH (09:18)
== END 2018-11-05 10:16 | disposition home or self-care (01) ==
LOC: NEPC 08:51 → NEDA 08:51 → NEPGCP 15:05
PROVIDERS: ADMIT Family Medicine; ATTEND Family Medicine
DX: K59.00 Constipation, unspecified; Z81.1 Family history of alcohol abuse and dependence; F17.210 Nicotine dependence, cigarettes, uncomplicated; Z80.0 Family history of malignant neoplasm of digestive organs; Z91.041 Radiographic dye allergy status; Z90.710 Acquired absence of both cervix and uterus; Z88.5 Allergy status to narcotic agent; R10.9 Unspecified abdominal pain; H57.04 Mydriasis; R42 Dizziness and giddiness; R31.9 Hematuria, unspecified; G89.29 Other chronic pain; R53.1 Weakness; H55.00 Unspecified nystagmus
CPT/HCPCS: 70450; 70544; 70551; 76700; 80048; 80053; 80307; 81001; 82607; 84439; 84443; 85025; 85651; 85652; 86140; 90760; 96360; 97162; 97530; 99285; G0378; G8987; G8988; J7030